=== PATIENT | male | born 1970 | race Caucasian/White ===

== ENCOUNTER 2016-09-04 10:00 | Emergency (ER) | payer MEDICARE, OTHER ==
[~2016-09-04] VITALS: Ht 190.5 cm; Wt 94.5 kg
[~2016-09-04 10:00] MED LIST: BACTRIM DS1 TAB PO; CEPHALEXIN500 MG PO; CIPROFLOXACN500 MG PO; CLINDAMYCIN150 MG PO; COZAAR25 MG PO; DILAUDID2 MG PO; GABAPENTIN800 MG PO; HYDROCHLOROT25 MG PO; LEVEMIR FL100 UNIT/M SC; LIPITOR40 MG PO; LISINOPRIL20 MG PO; LOPID600 MG PO; LORTAB 10-325 M1 TAB PO; LORTAB 7.57.5 MG OR; METFORMIN1000 MG PO; METFORMIN500 MG PO; METOPROL TAR25 MG PO; MICRONASE5 MG PO; NEXIUM40 MG PO; NOVOLOG FLEXPEN SC; PEGASYS180 MCG/M SC; PREVPAC OR; PRILOSEC20 MG/CAP PO; RIBAVIRIN200 M1 PO; TOPAMAX25 MG PO; TRAMADOL HCL50 MG PO; ULTRAM50 M1 PO
[2016-09-04] MEDS ORDERED: EC-NAPROSYN500 MG PO (13:31)
[2016-09-04] MEDS ORDERED: LORTAB 5/3255 MG PO (13:31)
[2016-09-04 13:42] VITALS: BP 128/78
== END 2016-09-04 13:49 | disposition home or self-care (01) ==
LOC: ED 10:00
DX: S00.93XA Contusion of unspecified part of head, initial encounter (principal); S40.011A Contusion of right shoulder, initial encounter; V13.4XXA Pedal cycle driver injured in collision with car, pick-up truck or van in traffic accident, initial encounter; Y92.414 Local residential or business street as the place of occurrence of the external cause

== ENCOUNTER 2017-08-28 10:32 | Emergency (ER) | payer MEDICARE, MEDICAID ==
[~2017-08-28] VITALS: Ht 190.5 cm; Wt 86.8 kg
[~2017-08-28 10:32] MED LIST changes: +EC-NAPROSYN500 MG PO; +LORTAB 5/3255 MG PO
[2017-08-28] MEDS ORDERED: CEPHALEXIN500 M1 PO (10:58)
[2017-08-28] MEDS ORDERED: BACTRIM DS1 TAB PO (10:58)
[2017-08-28 11:09] VITALS: BP 147/87
[2017-08-28] MEDS ORDERED: VITAMIN D PO (11:14)
[2017-08-28] MEDS ORDERED: MOTRIN400 MG PO (11:22)
== END 2017-08-28 11:22 | disposition home or self-care (01) ==
LOC: ED 10:32
PROC: 0H94XZZ Drainage of Neck Skin, External Approach (ICD-10-PCS; principal; 2017-08-28)
DX: L02.11 Cutaneous abscess of neck (principal); L03.221 Cellulitis of neck; E11.9 Type 2 diabetes mellitus without complications; B19.20 Unspecified viral hepatitis C without hepatic coma; F17.210 Nicotine dependence, cigarettes, uncomplicated

== ENCOUNTER 2019-12-02 09:36 | Inpatient (IN) | payer MEDICARE, MEDICAID ==
[2019-12-02] VITALS (9 sets, daily range): BP systolic 137–150; BP diastolic 67–80
[~2019-12-02] VITALS: Ht 190.5 cm; Wt 84.4 kg
[~2019-12-02 09:36] MED LIST changes: +CEPHALEXIN500 M1 PO; +MOTRIN400 MG PO; +VITAMIN D PO
--- NOTE | 2019-12-02 10:00 | NUR ---
PT TO ROOM VIA WC IN NO ACUTE DISTRESS.
[2019-12-02 10:45] LABS: HEMATOCRIT 45.3 % (39.0-50.0); HEMOGLOBIN 14.9 g/dl (14.0-18.0); IMMATURE GRANULOCYTES 0.6 % (0.0-5.0); MEAN CORPUSCULAR HGB 27.7 pG CALC (26.0-32.0); MEAN CORPUSCULAR HGB CONC 32.9 g/dL CAL (32.0-36.0); NEUT# 14.8 thou/uL (1.82-7.42); RED BLOOD COUNT 5.37 mill/uL (4.70-6.10); RED CELL DISTRI WIDTH 14.4 % (11.5-15.5)
[2019-12-02 10:46] LABS: URINE BILIRUBIN - DIPSTICK NEGATIVE (NEGATIVE); URINE BLOOD DIPSTICK SMALL (NEGATIVE); URINE COLOR YELLOW; URINE GLUCOSE - DIPSTICK >=1000 mg/dL (NEGATIVE); URINE KETONE NEGATIVE (NEGATIVE); URINE LEUK ESTERASE NEGATIVE (NEGATIVE); URINE NITRITE - DIPSTICK NEGATIVE (Negative); URINE PROTEIN - DIPSTICK 100 mg/dL (NEG-TRACE); URINE SPECIFIC GRAVITY 1.015; URINE UROBILINOGEN - DIPSTICK 0.2 E.U./dL (0.2)
[2019-12-02 10:48] LABS: MEAN CELL VOLUME 84.4 fL CALC (80.0-100.0)
[2019-12-02 10:59] LABS: ALBUMIN 4.3 g/dL (3.2-5.0); BUN 10 mg/dL (9-20); BUN/CREATININE RATIO 15 (12-20 (CALC)); CARBON DIOXIDE 27 mmol/l (22-30); CREATININE 0.7 mg/dL (0.7-1.3); GFR > 60 ML/MIN (>=60 (CALC)); GFR FOR AFR.AMER. > 60 ML/MIN (>=60 (CALC)); POTASSIUM 4.3 mmol/l (3.5-5.1); SGOT/AST 23 u/l (17-59); TOTAL PROTEIN 8.5 g/dL (6.3-8.2)
[2019-12-02 11:00] LABS: ALKALINE PHOSPHATASE 164 u/l (38-126); ANION GAP 16 (6-22 (CALC)); BILIRUBIN, TOTAL 0.9 mg/dL (0.0-1.4); CHLORIDE 88 mmol/l (95-108); SODIUM 127 mmol/l (137-146)
[2019-12-02 11:00] LABS: URINE BACTERIA MANY hpf; URINE SQUAMOUS EPITHELIAL CELL FEW EPI/hpf (0-FEW)
--- NOTE | 2019-12-02 11:00 | NUR ---
PT PRESENTS WITH NO PAIN AT THIS TIME AND IS NOT IN DISTRESS. PT ADVISED OF WAIT AND CALL LIGHT WITHIN REACH
--- NOTE | 2019-12-02 12:18 | NUR ---
RECHECKED GLUCOSE AFTER AN HOUR OF INSULIN ADMIN, RESULT: [id number]
--- NOTE | 2019-12-02 14:30 | NUR ---
ASSISTED PT TO BR, CHRISTA DAVIS
--- NOTE | 2019-12-02 15:40 | NUR ---
CALLED DR. ZHONG FOR ORDERS AND UPDATE ON PT, NEW ORDERS [id number] WHERE PT IS GOING TO CHANGE FROM MED SURG TO ICU. TREATMENTS IN PROCESS.
--- NOTE | 2019-12-02 16:00 | NUR ---
PT STATES HAVING TESTICULAR PAIN, MD ASSESSED AND AN ABCESS WAS DISCOVERED. TREATMENTS IN PROCESS AND PAIN MED GIVIN
--- NOTE | 2019-12-02 16:20 | NUR ---
PT MEDICATED FOR RT GROIN/TESTICULAR PAIN. PT WITH CONTINUOUS IVF BOLUS
--- NOTE | 2019-12-02 17:01 | NUR ---
PT UPDATED ON WAIT AND CHANGE OF EVENTS, HE VERBALIZED UNDERSTANDING. FLUIDS CONTINUE TO BE ADMIN
--- NOTE | 2019-12-02 18:00 | NUR ---
MD NOTIFIED OF PT VOMITING, ZOSYN WAS STOP FOR PRECAUSIONS, ORDERS FOR ZOFRAN RECIEVED.
--- NOTE | 2019-12-02 18:19 | NUR ---
400 CC COLLECTED OF URINE FROM STRAIGHT CATH, PT TOLERATED WELL. ZOSYN RESUMED PER MD ORDER
--- NOTE | 2019-12-02 18:57 | NUR ---
RECEIVED HAND OFF REPORT FROM JEWELS DALY, PATIENT TO ULTRASOUND AT THIS TIME.
--- NOTE | 2019-12-02 19:00 | NUR ---
GAVE REPORT TO SHANNEN
--- NOTE | 2019-12-02 19:25 | NUR ---
GAVE REPORT TO NARAYAN
--- NOTE | 2019-12-02 19:35 | NUR ---
49 yr old VERY old appearing male admitted to icu7 per stretcher from er. transferred self with 1 assist to bed. requested "pain medicine." admits "dilaudid will help." told this flex o writer operator he sees a "pain management dr in [place]" but doesn't know his name. monitoring engineer shows sinus tach hr 133. #20 rac saline lock. vancomycin given as ordered. history obtained per pt # er record. oriented to room. fall precautions initiated.
--- NOTE | 2019-12-02 20:05 | NUR ---
medicated for pain as requested.
[2019-12-03] VITALS (11 sets, daily range): BP systolic 99–144; BP diastolic 61–76
--- NOTE | 2019-12-03 00:01 | NUR ---
awake. medicated for pain as requested. crdiac monitor showssinus tach hr 130
--- NOTE | 2019-12-03 02:00 | NUR ---
watching tv. no distress. ivf infusing well.
--- NOTE | 2019-12-03 05:00 | NUR ---
lab hre. blood drawn.
[2019-12-03 05:26] LABS: HEMATOCRIT 39.5 % (39.0-50.0); IMMATURE GRANULOCYTES 1.3 % (0.0-5.0); MEAN CELL VOLUME 85.7 fL CALC (80.0-100.0); MEAN CORPUSCULAR HGB 27.1 pG CALC (26.0-32.0); MEAN CORPUSCULAR HGB CONC 31.6 g/dL CAL (32.0-36.0); NEUT# 15.57 thou/uL (1.82-7.42); RED BLOOD COUNT 4.61 mill/uL (4.70-6.10); RED CELL DISTRI WIDTH 14.7 % (11.5-15.5)
--- NOTE | 2019-12-03 05:40 | NUR ---
awake. medicated for pain as requested.
[2019-12-03 05:43] LABS: HEMOGLOBIN 12.5 g/dl (14.0-18.0)
[2019-12-03 06:56] LABS: ALKALINE PHOSPHATASE 118 u/l (38-126); ANION GAP 12 (6-22 (CALC)); BILIRUBIN, TOTAL 0.7 mg/dL (0.0-1.4); BUN 12 mg/dL (9-20); BUN/CREATININE RATIO 19 (12-20 (CALC)); CARBON DIOXIDE 22 mmol/l (22-30); CHLORIDE 98 mmol/l (95-108); CREATININE 0.6 mg/dL (0.7-1.3); GFR > 60 ML/MIN (>=60 (CALC)); GFR FOR AFR.AMER. > 60 ML/MIN (>=60 (CALC)); POTASSIUM 3.6 mmol/l (3.5-5.1); SGOT/AST 21 u/l (17-59); SODIUM 128 mmol/l (137-146); TOTAL PROTEIN 6.9 g/dL (6.3-8.2)
[2019-12-03 06:59] LABS: ALBUMIN 3.4 g/dL (3.2-5.0)
--- NOTE | 2019-12-03 07:30 | NUR ---
pt awake in bed; no apparent distress noted; assessment completed at this time; pt alert and oriented; admits to pain to scrotum area rating 9/10; no n/v noted; morphine order explained; typewriter assembler will medicate when due; resp even and unlabored; lungs clear; skin color wnl; ra; hr reg; strong pulses; no edema noted; st on monitor; abd soft with bs present; no bm noted per typewriter assembler; pt admits to voiding without pain or burning; urinal at bedside; #20 patent to rac with ivf infusing without complication; no redness or edema noted at site; redness and edema noted to scrotum; plan of care/ meds explained; call light within reach; will continue to monitor
--- NOTE | 2019-12-03 08:04 | NUR ---
awake in bed; no apparent distress noted; iv intact and patent; st on monitor; call light within reach; will continue to monitor
--- NOTE | 2019-12-03 08:34 | NUR ---
S: ANN SOLIS is a 49 M who presents with UTI, sepsis, and uncontrolled diabetes mellitus. He has a history of diabetes mellitus and Hep C. All medications in patient's chart were reviewed. O: VS: BP 144/64 mmHg, P 123 bpm, RR 29 breaths/min, T 98.6 F W 86 kg, HT 190.5 cm, Scr= 0.6, CrCl= 177.2 ml/min A: Blood culture is pending. Urine culture preliminary shows gram negative darryl >100,000 CFU/ML . P: Patient is on piperacillin sod/tazobactam 3.375gm IV Q6H. Vancomycin ordered for pharmacy to dose. Start Vancomycin 1g IV Q8H. Vancomycin trough is drawn before the 4th dose on 12/03/2019 1800. Vancomycin goal trough is between 15-20 mcg/ml. Pharmacy will follow and or advise on antibiotics use as needed.
--- NOTE | 2019-12-03 09:30 | NUR ---
awake in bed; medicated as per request for pain; iv intact and patent; will continue to monitor
--- NOTE | 2019-12-03 10:00 | NUR ---
Dr Renteria present at bedside to assess pt and discuss plan of care; scrotum elevated as per MD request; will continue to monitor
--- NOTE | 2019-12-03 12:02 | NUR ---
awake in bed; no apparent distress noted; scrotum elevated; st on monitor; iv intact and patent; call light within reach; will continue to monitor
--- NOTE | 2019-12-03 13:54 | NUR ---
pt awake in bed; noted to have vomited all over self; st on monitor; iv intact and patent; no redness or edma noted at site; call light within reach; will continue to monitor
--- NOTE | 2019-12-03 14:30 | NUR ---
up to chair; very weak/ unsteady gait; pt admits to ambulating with cane; assisted bath with complete linen change; pt wishes to return to bed; scrotum elevated; offers no complaints of pain; will continue to monitor
--- NOTE | 2019-12-03 16:05 | NUR ---
resting in bed with eyes closed; no apparent distress noted; st on monitor; iv intact and patent; scrotum remains elevated with towel; call light within reach; will continue to monitor
[2019-12-03] MEDS ORDERED: METFORMIN HYD1000 MG PO (16:49)
[2019-12-03] MEDS ORDERED: HUMALOG100 UNIT/M SC (16:50)
--- NOTE | 2019-12-03 16:50 | NUR ---
PER CRISTIANE, PT REPORTS HE MANAGES HIS OWN MEDS. REPORTS TAKING METFORMIN 1000MG PO BID AND HUMALOG 20 UNITS SC BID. CLAIMS [facility] IS WHERE HE FILLS MEDS. CALLED [facility], PT HAS NOT FILLED ANY MEDS SINCE 04/2019. MED REC UPDATED WITH THIS INFORMATION.
--- NOTE | 2019-12-03 18:03 | NUR ---
awake in bed eating dinner; no apparent distress noted; pt offers no complaints; iv intact and patent; st on monitor; call light within reach
--- NOTE | 2019-12-03 19:10 | NUR ---
awake. nad. hall monitor shows sinus tach hr 113. #20 rac ns infusing @ 125cchr. po fluids taken well. voids per urinal. fall precautions cont.
--- NOTE | 2019-12-03 22:00 | NUR ---
watching tv. no distress. ivf infusing well.
[2019-12-04] VITALS (13 sets, daily range): BP systolic 96–160; BP diastolic 60–85
--- NOTE | 2019-12-04 00:01 | NUR ---
c/o pain of "10". does not appear in that much pain. medicated as ordered.
--- NOTE | 2019-12-04 02:00 | NUR ---
watching tv. no c/o voiced. cardiac nurse practitioner shows sinus rhythm hr 98.
--- NOTE | 2019-12-04 04:00 | NUR ---
c/o pain "8-9." does not appear in that much pain. medicated as ordered.
[2019-12-04 06:09] LABS: MEAN CELL VOLUME 86.1 fL CALC (80.0-100.0); MEAN CORPUSCULAR HGB 27.2 pG CALC (26.0-32.0); MEAN CORPUSCULAR HGB CONC 31.6 g/dL CAL (32.0-36.0); RED BLOOD COUNT 3.75 mill/uL (4.70-6.10); RED CELL DISTRI WIDTH 14.6 % (11.5-15.5)
[2019-12-04 06:11] LABS: HEMATOCRIT 32.3 % (39.0-50.0); HEMOGLOBIN 10.2 g/dl (14.0-18.0)
[2019-12-04 06:18] LABS: ALKALINE PHOSPHATASE 91 u/l (38-126); ANION GAP 9 (6-22 (CALC)); BUN 15 mg/dL (9-20); BUN/CREATININE RATIO 26 (12-20 (CALC)); CARBON DIOXIDE 24 mmol/l (22-30); CHLORIDE 100 mmol/l (95-108); CREATININE 0.6 mg/dL (0.7-1.3); GFR > 60 ML/MIN (>=60 (CALC)); GFR FOR AFR.AMER. > 60 ML/MIN (>=60 (CALC)); SGOT/AST 18 u/l (17-59); SODIUM 130 mmol/l (137-146)
[2019-12-04 06:20] LABS: ALBUMIN 2.7 g/dL (3.2-5.0); BILIRUBIN, TOTAL 0.4 mg/dL (0.0-1.4); TOTAL PROTEIN 5.4 g/dL (6.3-8.2)
--- NOTE | 2019-12-04 06:45 | NUR ---
RECVD REPORT FROM CHANTELLE BUSCH AT START OF SHIFT
--- NOTE | 2019-12-04 07:24 | NUR ---
PT SLEEPING IN BED. NO S/S OF DISTRESS AT THIS TIME.
--- NOTE | 2019-12-04 08:07 | NUR ---
PT C/O PAIN TO TESTICLES OF 9/10 THROBBING & GENERALIZED BACK PAIN AND NEUROPATHY THAT HE SEES PAIN MANAGEMTN FOR. PT UNABLE TO REMEMBER PAIN MGMT MD OR RX. PT MEDICATED.
--- NOTE | 2019-12-04 08:57 | NUR ---
RBVO FOR CONSULT WITH JORGE LUIS TATE, TRANSFER TO [facility], KVO IVF. OR NOTIFIED OF CONSULT.
--- NOTE | 2019-12-04 10:15 | NUR ---
#16 CATH SWANSON INSERTED USING STERILE PROCEDURE W/OUT RESISTANCE. 800 CLOUDY YELLOW URINE OUT IMMEDIATELY. LARGE AMOUNT OF CRUSTY WHITE YEAST-LIKE SUBSTANCE WHEN FORESKIN PULLED BACK.
--- NOTE | 2019-12-04 11:42 | NUR ---
PT SITTING UP IN BED, EATING LUNCH. ASSISTED PT IN PERSONAL CELL PHONE TILE GRADER RETREIVAL FROM PERSONAL BAG AND PLUGGED IN PTS PERSONAL PHONE.
--- NOTE | 2019-12-04 12:10 | NUR ---
PT REQUEST PAIN MEDS FOR 9/10 CHRONIC PAIN & GROIN PAIN. PT LAUGHING IN ROOM, PLAYFUL WITH STAFF, SHOWING THIS RN PICTURES OF HIS DOG.
--- NOTE | 2019-12-04 12:26 | NUR ---
DR ESPAÑA @BEDSIDE FOR CONSULT. LEAVE IN CATH SWANSON. NO NEW ORDERS.
--- NOTE | 2019-12-04 13:31 | NUR ---
PT ON CALLBELL FOR DIET SODA.
--- NOTE | 2019-12-04 13:34 | NUR ---
S: ANN SOLIS is a 49 M who presents with UTI and sepsis. He has a history of diabetes mellitus and Hep C. All medications in patient's chart were reviewed. O: VS: BP 105/67 mmHg, P 92 bpm, RR 17 breaths/min, T 97.6 F W 86.012 kg, HT 190.5 cm, Scr= 0.6, CrCl= 177 ml/min A: Blood culture is pending. Urine culture shows E. Coli >100,000 CFU/ML which is sensitive to zosyn. P: Patient is on zosyn 3.375gm IV Q6H. Vancomycin ordered for pharmacy to dose. Patient was on vancomycin 1000mg IV Q8H. Trough levels was 8 on 12/03/2019. Change Vancomycin to 1250mg IV Q8H. Vancomycin trough is drawn before the 4th dose on 12/04/2019 1800. Vancomycin goal trough is between 15-20 mcg/ml. Pharmacy will follow and or advise on antibiotics use as needed.
--- NOTE | 2019-12-04 16:24 | NUR ---
UNABLE TO TAKE PICTURE OF SWOLLEN SCROTUM D/T CAMERA NOT CHARGING. PT REFUSING TO ELEVATE HIS SCROTUM. PT C/O 02/03 PAIN BUT PT IS JOKING & PLAYFUL WITH STAFF, SMILING.
--- NOTE | 2019-12-04 18:30 | NUR ---
CALLED [facility] FOR ROOM ASSIGNMENT
--- NOTE | 2019-12-04 20:30 | NUR ---
to [facility] room 272 per w/c.
--- NOTE | 2019-12-04 20:39 | NUR ---
PT ARRIVED TO ROOM @ 2006 VIA WHEELCHAIR. PT ALERT AND ORIENTED. NO APPARENT DISTRESS NOTED. PT C/O GROIN/TESTICLE PAIN 03/05. PT MEDICATED AT THIS TIME WITH IV MORPHINE. ASSESSMENT COMPLETE. FRESH ICE WATER PROVIDED. DISCUSSED POC. PT VERBALIZED UNDERSTANDING. CALL LIGHT WITHIN REACH. WILL CONTINUE TO MONITOR.
[2019-12-05 00:33] VITALS: BP 113/67
--- NOTE | 2019-12-05 00:35 | NUR ---
PT MEDICATED FOR SCROTUM PAIN 02/03 WITH IV MORPHINE. SCROTUM ELEVATED AT THIS TIME. PT DENIES ANY OTHER WANTS OR NEEDS. CALL LIGHT WITHIN REACH. WILL CONTINUE TO MONITOR.
[2019-12-05 04:30] VITALS: BP 130/67
--- NOTE | 2019-12-05 04:33 | NUR ---
PT MEDICATED FOR SCROTUM PAIN 9-10. SCROTOM ELEVATED WITH TOWEL AT THIS TIME. PT DENIES ANY OTHER WANTS OR NEEDS. CALL LIGHT WITHIN REACH. WILL CONTINUE TO MONITOR.
--- NOTE | 2019-12-05 07:40 | NUR ---
REPORT RECEIVED FROM CHANTELLE ARELLANO. PT RESTING IN BED SEMI FOWLERS WITH EYES CLOSED AND NO SIGNS OF DISTRESS. RESPIRATIONS EVEN AND UNLABORED ON ROOM AIR. AWAKENED TO VERBAL STIMULI. UPON AWAKENING PT C/O 10/10 SCROTAL PAIN; SCROTUM IS RED, WARM, AND SWOLLEN; ELEVATED ON WASH CLOTHS; ICE OFFERED. LUNGS ARE CLEAR, ABDOMEN DISTENDED AND FIRM WITH HYPERACTIVE BS. SWANSON DRAINING CLEAR YELLOW URINE IN ADEQUATE AMOUNTS; LEG STRAP SECURE TO RIGHT THIGH. IV FLUIDS INFUSING; IV SITE APPEARS HEALTHY. PLAN OF CARE REVIEWED. PT ENCOURAGED TO VERBALIZE CONCERNS. STATES UNDERSTANDING. SAFETY MEASURES IN PLACE. CALL LIGHT WITHIN REACH.
[2019-12-05 07:56] VITALS: BP 96/57
[2019-12-05 10:02] LABS: HEMATOCRIT 30.2 % (39.0-50.0); HEMOGLOBIN 9.8 g/dl (14.0-18.0); MEAN CELL VOLUME 84.6 fL CALC (80.0-100.0); MEAN CORPUSCULAR HGB 27.5 pG CALC (26.0-32.0); MEAN CORPUSCULAR HGB CONC 32.5 g/dL CAL (32.0-36.0); RED BLOOD COUNT 3.57 mill/uL (4.70-6.10); RED CELL DISTRI WIDTH 14.3 % (11.5-15.5)
[2019-12-05 10:18] LABS: ANION GAP 9 (6-22 (CALC)); BUN 10 mg/dL (9-20); BUN/CREATININE RATIO 17 (12-20 (CALC)); CARBON DIOXIDE 26 mmol/l (22-30); CHLORIDE 98 mmol/l (95-108); CREATININE 0.6 mg/dL (0.7-1.3); GFR > 60 ML/MIN (>=60 (CALC)); GFR FOR AFR.AMER. > 60 ML/MIN (>=60 (CALC)); SODIUM 130 mmol/l (137-146)
--- NOTE | 2019-12-05 10:45 | NUR ---
MORPHINE GIVEN FOR 10/10 SCROTAL PAIN.
--- NOTE | 2019-12-05 12:30 | NUR ---
PO POTASSIUM GIVEN ALONG WITH FIRST DOSE OF ROCEPHIN; PT EDUCATED ON NEW MED.
--- NOTE | 2019-12-05 15:00 | NUR ---
MORPHINE GIVEN FOR 10/10 SCROTAL PAIN. WALKER PROVIDED AND PT AMBUALTED INTO BATHROOM TO GIVEN HIMSELF A PARITAL BATH; DECLINED FULL SHOWER AT THIS TIME; LINENS CHANGED. 825 ML OF CLEAR DARRELL URINE EMPTIED FROM SWANSON.
[2019-12-05 15:41] VITALS: BP 118/68
[2019-12-05 18:58] VITALS: BP 101/57
--- NOTE | 2019-12-05 19:30 | NUR ---
REPORT FROM AGUSTIN DONIS. PT ALERT AND ORIENTED. NO APPARENT DISTRESS NOTED. PT C/O GROIN/TESTICLE PAIN 02/03. PT MEDICATED AT THIS TIME WITH IV MORPHINE. SCROTUM RED AND SWOLLEN, ELEVATED WITH ROLLED UP TOWEL. ASSESSMENT COMPLETE. FRESH ICE WATER PROVIDED. DISCUSSED POC. PT VERBALIZED UNDERSTANDING. CALL LIGHT WITHIN REACH. WILL CONTINUE TO MONITOR.
--- NOTE | 2019-12-05 23:32 | NUR ---
PT RESTING IN BED. NO APPARENT DISTRESS NOTED. KIKI REMAINS PATENT. SCROTUM ELEVATED ON TOWEL. SNACK PROVIDED UPON REQUEST. PT DENIES ANY OTHER WANTS OR NEEDS. CALL LIGHT WITHIN REACH. WILL CONTINUE TO MONITOR.
[2019-12-05 23:50] VITALS: BP 109/59
[2019-12-06 04:21] VITALS: BP 112/62
--- NOTE | 2019-12-06 04:46 | NUR ---
PT MEDICATED FOR PAIN IN SCROTUM 03/05. NO APPARENT DISTRESS NOTED. ENCOURAGED REPOSITIONING AND ELEVATION OF SCROTUM WITH TOWEL. NO OTHER WANTS OR NEEDS. CALL LIGHT WITHIN REACH. WILL CONTINUE TO MONITOR.
--- NOTE | 2019-12-06 07:00 | NUR ---
SHIFT CHANGE REPORT, PT AWAKE ALERT AND ORIENTED RESTING IN BED, NO C/O DISCOMFORT AT THIS TIME, IVF INFUSING, TELE MONITOR IN PLACE, CALL OSMAN IN REACH.
[2019-12-06 07:52] VITALS: BP 108/57
[2019-12-06 11:26] VITALS: BP 116/63
--- NOTE | 2019-12-06 14:35 | NUR ---
S: ANN SOLIS is a 49 M who presents with CELLULITIS . He has a history of epifofymitis. All medications in patient's chart were reviewed. O: VS: BP 116/63 , P 88, RR 18,T 97.7 W 84kg, HT 75in, Scr=0.6 A: Blood culture shows no growth after 2 days Urine culture shows ecoli P: Patient is on rocephin 1 gram Vancomycin ordered for pharmacy to dose. continue Vancomycin 1250mg q8h IV Q12H. Vancomycin trough is drawn before the dose on 12/07/19 @0930. Vancomycin goal trough is between <10-15 mcg/ml>. Pharmacy will follow and or advise on antibiotics use as needed LANA STALLINGSD
[2019-12-06 15:50] VITALS: BP 122/67
--- NOTE | 2019-12-06 16:00 | NUR ---
PT DEMOTIVATED AND WANTS TO LAY IN BED ALL DAY, EDUCATED ON BENEFITS OF AMBULATING AND ENCOURAGED TO GET OOB TO AMBULATE, TOOK FEW STEPS IN ROOM THEN DECIDED HE COULDNT TOLERATE AMBULATING, ASSISTED BACK TO BED.
--- NOTE | 2019-12-06 19:30 | NUR ---
TO ICU 5 VIA BED DUE TO STAFFING ISSUES. PT ALERT. COOPERATIVE. VANCOMUCIN IN NS INFUSING RX THROUGH #22 IV IN LEFT FOREARM. SITE APPEARS WELL. PT REPORTS HE IS FEELING MUCH BETTER AND SCROTUM IS MUCH LESS EDEMATOUS THAT ON ADMISSION. SWANSON TO BSD WITH STRAW COLORED URINE
--- NOTE | 2019-12-06 19:30 | NUR ---
REPORT GIVEN TO MARYANN IN ICU, PT INFORMED OF PLAN TO TRANSFER AND STATED UNDERSTANDING. PT TRANSFERRED VIA BED TO ICU AND RECEIVED BY MARYANN.
[2019-12-06 20:00] VITALS: BP 140/66
--- NOTE | 2019-12-06 20:30 | NUR ---
REQUESTED PAIN MEDICATION FOR SCROTAL PAIN WHICH SINDS PAIN UP BACK. REPORTS HAS CHRONIC BACK PAIN SINCE ROLLING AUTOMOBILE 27 TIMES ON FLAT SURFACE. ALSO, REQUESTING CRACKERS, SANDWICH, SALAD AND GINGERALE. HALF OF A TURKEY SANDWICH, DIET GINGERALE AND DIET PUDDING GIVEN AFTER HS ACCUCHECK WHICH WAS 208.
--- NOTE | 2019-12-06 21:30 | NUR ---
MORPHINE GIVEN PER REQUEST. STATES BACK IS HURTING SCROTAL PAIN SHOOTS PAIN UP BACK
--- NOTE | 2019-12-06 22:15 | NUR ---
STATES SCROTAL PAIN ABOUT GONE BUT BACK CONTINUES TO ACHE. SAID HE NEEDS DTRONGER PAIN MEDICATION THAN MORPHINE. EXPLAINED THAT IS A NARCOTIC AND ONE OF THE STRONGEST THAT WE HAVE. REPORTS HE WILL ASK THE DOCTOR FOR A LARGER DOSE OR SOMETHING DIFFERENT IN THE MORNING.
--- NOTE | 2019-12-06 23:03 | NUR ---
AT SNACKS-TOLERATED WELL. BEDRESTING WITH LIGHTS OUT AT THIS TIME
[2019-12-07] VITALS (7 sets, daily range): BP systolic 119–140; BP diastolic 64–77
--- NOTE | 2019-12-07 01:00 | NUR ---
WATCHING TV. STATES NAPPING AT TIMES. DENIES SCROTAL PAIN AND STATES HE ALWAYS HAS BACK PAIN. LIGHT YELLOW URINE TO BSD BAG
--- NOTE | 2019-12-07 02:35 | NUR ---
PLAYING VIDEO GAMES. NO DISTRESS NOTED. VANCOMYCIN INFUSING FREE OF ISSUES
--- NOTE | 2019-12-07 04:00 | NUR ---
BEDRESTING. NAPPING AT INTERVALS.N/C GIVEN PAIN MEDICATION EVERY 4 HOURS
--- NOTE | 2019-12-07 06:00 | NUR ---
WATCHING TV. REQUESTING PAIN MEDICATION AND SODA. HAD LARGE URINATY OUTPUT VIA SWANSON. PT REPORTS SWANSON WAS PLACE HE WAS TOO SWOLLEN TO VOID BUT IS DOING MUCH BETTER NOW. HAS HAD SCROTUM ON TOWEL TO ELEVATE BUT PT HAS REMOVED TOWELS AND REPOSITIONED SCROTUM AD KAMAR. HE REPORTS FEELING MUCH BETTER
--- NOTE | 2019-12-07 07:14 | NUR ---
REPORT GIVEN TO S.ROSE
--- NOTE | 2019-12-07 07:20 | NUR ---
pt awake in bed; no apparent distress noted; assessment completed at this time; pt alert and oriented; admits to pain rating 9.5/10; no n/v noted; morphine prn explained; resp even and unlabored; lungs clear; skin color wnl; ra; hr reg; strong pulses; no edema noted; sr on monitor; abd distended with bs present; no bm noted per technical document writer; sylvester to gravity draining clear yellow urinel #22 flushed and patent to lfa; no redness or edema noted at site; scrotum noted with swelling and redness; plan of care/am meds explained; call light within reach; will continue to monitor
--- NOTE | 2019-12-07 07:48 | NUR ---
Dr Renteria present at bedside to assess pt and discuss plan of care
--- NOTE | 2019-12-07 08:20 | NUR ---
awake in bed; no apparent distress noted; iv intact; sr on monitor; sylvester to gravity; call light within reach; will continue to monitor
--- NOTE | 2019-12-07 09:45 | NUR ---
filling station laborer at bedside; plan of care/transfer explained; will continue to monitor
--- NOTE | 2019-12-07 10:00 | NUR ---
report called to Anat Singh RN; pt to transfer to med surg tele [phone]; receiving nurse informed of Dr Renteria request for sylvester to be removed after transfer and for pt to be up and ambulating;
[2019-12-07 10:07] LABS: ANION GAP 7 (6-22 (CALC)); BUN 7 mg/dL (9-20); BUN/CREATININE RATIO 15 (12-20 (CALC)); CARBON DIOXIDE 28 mmol/l (22-30); CHLORIDE 102 mmol/l (95-108); CREATININE 0.5 mg/dL (0.7-1.3); GFR > 60 ML/MIN (>=60 (CALC)); GFR FOR AFR.AMER. > 60 ML/MIN (>=60 (CALC)); MAGNESIUM 1.9 mg/dL (1.6-2.3); POTASSIUM 3.3 mmol/l (3.5-5.1); SODIUM 133 mmol/l (137-146)
--- NOTE | 2019-12-07 10:12 | NUR ---
Dr Renteria informed of K+ of 3.3; orders received and on chart
--- NOTE | 2019-12-07 10:14 | NUR ---
pt transferred to med surg via wc in stable condition; pt belongings sent with pt; update provided to Anat Singh RN;
--- NOTE | 2019-12-07 10:15 | NUR ---
PT ARRIVED TO ROOM VIA WHEELCHAIR WITH ICU STAFF IN STABLE CONDITION; PT TOOK A FEW UNSTEADY STEPS TO BED AND NOW RESTING IN BED SEMI FOWLERS. C/O 9/10 SCROTAL PAIN AND REQUESTING PAIN MEDICATION. ORIENTED TO NEW ROOM AND CALL LIGHT SYSTEM. VSS. SAFETY MEASURES IN PLACE. CALL LIGHT WITHIN REACH.
--- NOTE | 2019-12-07 11:25 | NUR ---
SWANSON REMOVED; PT TOLERATED WELL. VANCO TROUGH 12; VANCO INFUSING AT THIS TIME. WALKER PROVIDED FOR AMBULATION. MEDICATED WITH MORPHINE PRIOR TO SWANSON REMOVAL.
--- NOTE | 2019-12-07 12:04 | NUR ---
S: ANN SOLIS is a 49 M who presents with acute epididymitis and sepsis. He has a history of diabetes and hepatitis C. All medications in patient's chart were reviewed. O: VS: BP 140/70 mmHg, P 85 bpm, RR 18 breaths/min, T 97.2 F W 847.37 kg, HT 190.5 cm, Scr= 0.5 mg/dL, CrCl= 170.6 ml/min A: Blood culture on 12/02/19 shows no growth. Urine culture on 12/02/19 shows E. coli > 100,000 cfu/ml which is sensitive to ceftriaxone. P: Patient is on ceftriaxone 1g IV Q24H. Vancomycin ordered for pharmacy to dose. Vancomycin trough level is 12 on 12/07/19. Continue Vancomycin 1250 mg IV Q8H. Vancomycin trough is drawn before the 4th dose on 12/08/19 at 0930. Vancomycin goal trough is between 10-15 mcg/ml. Pharmacy will follow and or advise on antibiotics use as needed.
--- NOTE | 2019-12-07 16:18 | NUR ---
AMBULATING DOWN HALLWAY WITH WALKER AND STAND BY ASSIST. HAVING SEVERE SCROTAL PAIN DURING AMBULATION; MORPHINE ADMINISTERED AT THIS TIME.
--- NOTE | 2019-12-07 18:44 | NUR ---
VANCO INFUSING; IV SITE APPEARS HEALTHY. PT REQUESTING PAIN MEDICATION. REMINDED OF MED FREQUENCY; WILL ADMINISTER WHEN DUE.
--- NOTE | 2019-12-07 20:00 | NUR ---
PATIENT RESTING IN BED. SHIFT ASSESSMENT COMPLETE. ADMINISTERED SCHEDULED MEDICATIONS PER MAR. NO DISTRESS NOTED. VSS. PATIENT VOIDING IN URINAL. RESPIRATIONS EVEN AND UNLABORED. CALL LIGHT IN REACH. WILL CONTINUE TO MONITOR.
--- NOTE | 2019-12-08 00:52 | NUR ---
PATIENT SLEEPING IN BED. NO DISTRESS NOTED. RESPIRATIONS EVEN AND UNLABORED. CONTINUE TO MONITOR.
[2019-12-08 03:48] VITALS: BP 125/67
--- NOTE | 2019-12-08 04:00 | NUR ---
PATIENT SLEEPING IN BED. RESP EVEN AND UNLABORED. NO DISTRESS NOTED.
[2019-12-08 05:00] LABS: MEAN CELL VOLUME 86.4 fL CALC (80.0-100.0); MEAN CORPUSCULAR HGB 27.2 pG CALC (26.0-32.0); MEAN CORPUSCULAR HGB CONC 31.5 g/dL CAL (32.0-36.0); NEUT# 4.04 thou/uL (1.82-7.42); RED BLOOD COUNT 4.34 mill/uL (4.70-6.10); RED CELL DISTRI WIDTH 15.1 % (11.5-15.5)
[2019-12-08 05:05] LABS: HEMATOCRIT 37.5 % (39.0-50.0); HEMOGLOBIN 11.8 g/dl (14.0-18.0)
[2019-12-08 05:31] LABS: ANION GAP 9 (6-22 (CALC)); BUN 8 mg/dL (9-20); BUN/CREATININE RATIO 13 (12-20 (CALC)); CARBON DIOXIDE 28 mmol/l (22-30); CHLORIDE 102 mmol/l (95-108); CREATININE 0.6 mg/dL (0.7-1.3); GFR > 60 ML/MIN (>=60 (CALC)); GFR FOR AFR.AMER. > 60 ML/MIN (>=60 (CALC)); POTASSIUM 3.7 mmol/l (3.5-5.1); SODIUM 134 mmol/l (137-146)
[2019-12-08 08:35] VITALS: BP 149/81
--- NOTE | 2019-12-08 08:35 | NUR ---
IV SITE WAS GOOD. NO REDNESS OR EDEMA. GAVE PAIN MEDICATION , AND THEN AT 0930 C/O RED AND LITTLE TENDER, STOPPED IV FLUIDS. CHANGED TO RAC WITH #20 AFTER 2 ATTEMPTS. PT TOLERATED WELL. CONTINUE TO OBSERVE AND MONITOR.
--- NOTE | 2019-12-08 08:35 | NUR ---
ASSESSMENT IS COMPLTED: IV SITE IS FREE FROM REDNESS OR EDEMA. HR IS REG,PULSES ARE STRONG X4, ABD IS SOFT WITH ACTIVE BS. BREATH SOUNDS ARE CLEAR,BILATERALLY, TELE MONITOR IN PLACE. SCROTUM IS LARGE. PT C/O HAVING TO VOID A LOT. CONITNUE TO OBSERVE AND MONITOR.
[2019-12-08 11:01] VITALS: BP 140/76
--- NOTE | 2019-12-08 12:45 | NUR ---
PT IS RELAXING IN BED WITH NO DISTRESS NOTED. IV SITE IS FREE FROM REDNESS OR EDEMA.
--- NOTE | 2019-12-08 13:03 | NUR ---
PT IS RECEIVING VANCOMYCIN 1250MG IV Q8H FOR UTI/SEPSIS, SEPSIS SEEMS TO BE RESPONDING WELL CLINICALLY TO CURRENT DOSE. TROUGH TODAY REMAINED 12. CONTINUE CURRENT DOSE, RE-CHECK TROUGH 12/09 @ 0930. PHARMACY WILL CONTINUE TO FOLLOW
[2019-12-08 15:35] VITALS: BP 140/76
--- NOTE | 2019-12-08 16:45 | NUR ---
PT IS RELAXING IN BED WITH NO DISTRESS NOTED. IV SITE IS FREE FROM REDNESS OR EDEMA. CONTINUE TO OSBERVE AND MONITOR.
--- NOTE | 2019-12-08 18:27 | NUR ---
PAIN MEDICATION WAS GIVEN AT 1740 WAS CHANGED FROM IV TO ORAL
[2019-12-08 19:30] VITALS: BP 146/81
--- NOTE | 2019-12-08 19:45 | NUR ---
PT RESTING IN BED, NO SIGNS OF DISTRESS NOTED, RESP EVEN AND UNLABORED. PT ALERT AND ORIENTED X3, DISCUSSED POC, PT VOICES NO NEEDS OR COMPLAINTS AT THIS TIME, SCROTUM RED AND SWOLLEN, ASSESSMENT COMPLETED AT THIS TIME, CALL LIGHT IN REACH,CONTINUE TO MONITOR.
--- NOTE | 2019-12-08 21:43 | NUR ---
PT RESTING IN BED WATCHING TV, NO SIGNS OF DISTRESS NOTED, RESP EVEN AND UNLABORED. CALL LIGHT IN REACH,CONTINUE TO MONITOR.
[2019-12-08 23:00] VITALS: BP 133/80
--- NOTE | 2019-12-09 00:09 | NUR ---
PT RESTING IN BED WITH EYES CLOSED, NO SIGNS OF DISTRESS NOTED, RESP EVEN AND UNLABORED. CALL LIGHT IN REACH,CONTINUE TO MONITOR.
--- NOTE | 2019-12-09 03:39 | NUR ---
PT RESTING IN BED, C/O PAIN MEDICATED PER JUL. CALL LIGHT IN REACH,CONTINUE TO MONITOR.
[2019-12-09 03:45] VITALS: BP 125/79
--- NOTE | 2019-12-09 06:16 | NUR ---
PT RESTING IN BED, C/O PAIN. PT MEDICATED FOR PAIN. CALL LIGHT IN REACH,CONTINUE TO MONITOR.
--- NOTE | 2019-12-09 07:15 | NUR ---
REPORT RECEIVED FROM CHANTELLE CHIRINOS. PT RESTING IN BED SEMI FOWLERS; ALERT AND ORIENTED. C/O 7/10 SCROTUM PAIN. RESPIRATIONS EVEN AND UNLABORED ON ROOM AIR. TELE ON. IV FLUIDS INFUSING AT KVO; IV SITE APPEARS HEALTHY. PLAN OF CARE REVIEWED. PT ENCOURAGED TO VERBALIZE CONCERNS. STATES UNDERSTANDING. SAFETY MEASURES IN PLACE. CALL LIGHT WITHIN REACH.
[2019-12-09 08:00] VITALS: BP 135/77
--- NOTE | 2019-12-09 08:45 | NUR ---
AMBULATING IN HALLWAYS WITH WALKER; GAIT AND PAIN LEVEL DURING AMBULATION IMRPOVED. PT ENCOURAGED TO BE UP IN CHAIR FOR MEALS AND AMBULATE AFTERWARDS. STATES UNDERSTANDING.
[2019-12-09 11:41] VITALS: BP 139/76
--- NOTE | 2019-12-09 12:02 | NUR ---
SITTING UP IN BEDSIDE CHAIR FOR LUNCH. PERCOCET GIVEN FOR PERSISTENT PAIN TO SCROTUM; LESS SWELLING AND REDNESS NOTED; IMPROVED FROM BEFORE. PT DOES CONTINUE TO REPORT URINARY INCONTINENCE, BUT ALSO VOIDING CLEAR YELLOW URINE IN URINAL IN ADEQUATE AMOUNTS.
--- NOTE | 2019-12-09 13:33 | NUR ---
DR. BOYER ON FLOOR FOR CONSULT. PT UPDATED ON F/U APPT WITH DR. BOYER FOR OUTPATIENT CYSTO 12/29/19 AT 10AM AT PC LOCATION.
[2019-12-09 16:14] VITALS: BP 136/77
[2019-12-09 19:35] VITALS: BP 141/80
--- NOTE | 2019-12-09 20:45 | NUR ---
PT RESTING IN BED, NO SIGNS OF DISTRESS NOTED, RESP EVEN AND UNLABORED. PT ALERT AND ORIENTED X3, DISCUSSED POC, PT STATES HE WOULD LIKE SOME CREAM FOR HIS RASH, NOTED PT'S BUTTOCK REDDENED, SKIN INTACT. BARRIER CREAM APPLIED, PT TOLERATED WELL. ASSESSMENT COMPLETED. PT REQUESTING TO AMBULATE HALLWAY, CALL LIGHT IN REACH,CONTINUE TO MONITOR.
[2019-12-10] VITALS (7 sets, daily range): BP systolic 120–138; BP diastolic 72–81
--- NOTE | 2019-12-10 | NUR ---
PT RESTING IN BED WITH EYES CLOSED, NO SIGNS OF DISTRESS NOTED, RESP EVEN AND UNLABORED. CALL LIGHT IN REACH,CONTINUE TO MONITOR.
--- NOTE | 2019-12-10 01:52 | NUR ---
PT RESTING IN BED, NO SIGNS OF DISTRESS NOTED, RESP EVEN AND UNLABORED. PT MEDICATED FOR PAIN, CALL LIGHT IN REACH,CONTINUE TO MONITOR.
--- NOTE | 2019-12-10 04:03 | NUR ---
PT RESTING IN BED, NO SIGNS OF DISTRESS NOTED, RESP EVEN AND UNLABORED. PT REQUESTING SNACK, SNACK PROVIDED. VOICES NO NEEDS OR COMPLAINTS AT THIS TIME, CALL LIGHT IN REACH,CONTINUE TO MONITOR.
[2019-12-10 05:04] LABS: HEMATOCRIT 44.6 % (39.0-50.0); HEMOGLOBIN 13.4 g/dl (14.0-18.0); MEAN CELL VOLUME 87.8 fL CALC (80.0-100.0); MEAN CORPUSCULAR HGB 26.4 pG CALC (26.0-32.0); RED BLOOD COUNT 5.08 mill/uL (4.70-6.10); RED CELL DISTRI WIDTH 15.2 % (11.5-15.5)
[2019-12-10 05:36] LABS: ALKALINE PHOSPHATASE 119 u/l (38-126); ANION GAP 10 (6-22 (CALC)); BILIRUBIN, TOTAL 0.3 mg/dL (0.0-1.4); BUN 9 mg/dL (9-20); BUN/CREATININE RATIO 15 (12-20 (CALC)); CARBON DIOXIDE 30 mmol/l (22-30); CHLORIDE 101 mmol/l (95-108); CREATININE 0.6 mg/dL (0.7-1.3); GFR > 60 ML/MIN (>=60 (CALC)); GFR FOR AFR.AMER. > 60 ML/MIN (>=60 (CALC)); POTASSIUM 4.2 mmol/l (3.5-5.1); SGOT/AST 24 u/l (17-59); SODIUM 136 mmol/l (137-146)
[2019-12-10 05:40] LABS: ALBUMIN 3.5 g/dL (3.2-5.0); TOTAL PROTEIN 7.1 g/dL (6.3-8.2)
--- NOTE | 2019-12-10 08:14 | NUR ---
REPORT RECIEVED. PT RESTING WITH EYE CLOSED IN BED. AWAKENS TO VERBAL STIMULI AND ALERT AND ORIETNED X3. REPORT PAIN OF 8/10 WILL PROVIDE PRN MEDICATION. P REPORTS TEWNDERNESS ON HIS SCROTUM. ZINC CREAM APPLIED TO SCROTUM. LUNG SOUND CLEAR. HEALTHY FLUSHES. WILL CONTINUE TO MONITOR.
--- NOTE | 2019-12-10 12:00 | NUR ---
IV FLUIDS INFUSING AT [facility]; IV SITE APPEARS HEALTHY. CONTINUES TO C/O PERSISTENT SCROTAL PAIN; ICE PACK OFFERED AND MEDICATED PER SCHEDULE. SITTING UP WATCHING TV. CALL LIGHT WITHIN REACH.
--- NOTE | 2019-12-10 13:34 | NUR ---
S: ANN SOLIS is a 49 M who presents with UTI. He has a history of diabetes and hepatitis C. All medications in patient's chart were reviewed. O: VS: BP 120/72 mmHg, P 88 bpm, RR 18 breaths/min, T 97 F W 84.3 kg, HT 190.5 cm, Scr= 0.6 mg/dL, CrCl= 177 ml/min A: Blood culture shows no growth. Urine culture on 12/01 showed E.coli which is sensitive to ceftriaxone. P: Patient is on ceftriaxone 1g IV Q24H. Vancomycin trough level is 16 on 12/09. Vancomycin ordered for pharmacy to dose. Patient was on vancomycin 1250 mg IV Q8H. Change to Vancomycin 1000 mg IV Q8H. Vancomycin trough is drawn before the 4th dose on 12/10 at 1730. Vancomycin goal trough is between 10-15 mcg/ml. Pharmacy will follow and or advise on antibiotics use as needed.
--- NOTE | 2019-12-10 16:00 | NUR ---
PT ENCOURAGED TO GET UP TO CHAIR FOR MEALS AND AMBULATE WITH WALKER; IS NOT PROACTIVE WITH ADLS; NEEDS ENCOURAGEMENT. VOIDING CLEAR YELLOW URINE IN BEDSIDE URINAL.
--- NOTE | 2019-12-10 20:15 | NUR ---
ASSESSMENT COMPLETED. IV SITE PATENT AND INFSUING ORDERED IVF WELL. PT. REQUESTING IT TO BE CHANGED HE DOESNT LIKE IT IN THE BEND OF THE ARM; WILL RESTART SHORTLY. SLIGHT SWELLING AND REDNESS NOTED TO SCROTUM AND IS ELEVATED. URINALS AT BEDSIDE. VOICES NO OTHER CONCERNS. CALL LIGHT IS IN REACH. WILL CONTINUE TO MONITOR.
--- NOTE | 2019-12-10 20:58 | NUR ---
PT. C/O SCROTAL PAIN 10/10 AND MEDICATED WITH ORDERD PRN PERCOCET; WILL REASSESS.
--- NOTE | 2019-12-11 00:30 | NUR ---
RESTING IN BED WITH EYES CLOSED; RESP. EVEN AND UNLABORED. CALL LIGHT IS IN REACH.
--- NOTE | 2019-12-11 02:05 | NUR ---
PT. WATCHING TV AND DENIES NEEDS. VOCIES NO CONCERNS. CALL LIGHT IS IN REACH.
[2019-12-11 04:28] VITALS: BP 129/80
--- NOTE | 2019-12-11 04:28 | NUR ---
VSS. NO DISTRESS NOTED; DENIES NEEDS/PAIN. URINAL EMPTIED. CALL LIGHT IS IN REACH. ENCOURAGED TO CALL FOR ANY NEEDS.
--- NOTE | 2019-12-11 05:19 | NUR ---
PT. C/O SCROTAL PAIN AND MEDICATED WITH ORDERED PRN PERCOCET AND PO FLUIDS OFFERED. URINAL EMPTIED. CALL LIGHT IS IN REACH.
[2019-12-11 07:50] VITALS: BP 131/80
--- NOTE | 2019-12-11 07:50 | NUR ---
ASSESSMENT IS COMPLETED: IV SITE IS FREE FROM REDNESS OR EDEMA. HR IS REG,PULSES ARE STRONG X4, ABD IS SOFT WITH ACTIVE BS, BREATH SOUNDS ARE CLEAR,BILATERALLY, SOME SLIGHT EDEMA NOTED ON SCROTAL AREA. TELE MONITOR IN PLACE.,
[2019-12-11] MEDS ORDERED: KEFLEX500 MG PO (09:47)
[2019-12-11] MEDS ORDERED: [UNRECOGNIZED DRUG - OTHER] TOP (10:02)
[2019-12-11 10:43] VITALS: BP 126/74
[2019-12-11 12:17] VITALS: BP 126/74
--- NOTE | 2019-12-11 12:50 | NUR ---
PT'S IV SITE AND TELE DISCONTINUED CATHETER INTACT. NO REDNESS OR EDEMA. DISCHARGE INSTRUCTIONS GIVEN AND VERBALIZED UNDERSTANDING. FAMILY CAME AND BROUGHT CLOTHES. CONTINUE TO OBSERVE AND MONITOR. Discharge instructions given. Patient verbalizes understanding of same. Discharged in stable condition via Wheelchair to Home with family. All belongings sent with pt.
== END 2019-12-11 12:50 | disposition home or self-care (01) | DRG 872 ==
LOC: ED 09:36 → ED-I 12:20 → ED 12:34 → MS2 12:35 → ED-I 12:35 → MS2 13:29 → ICU 15:50 → MS2 12-04 18:30 → ICU 12-06 19:25 → MS2 12-07 10:15
PROVIDERS: Family Medicine; Nurse Practitioner Family; ADMIT Internal Medicine; ATTEND Internal Medicine
PROC: 0T9B70Z Drainage of Bladder with Drainage Device, Via Natural or Artificial Opening (ICD-10-PCS; principal; 2019-12-04)
DX: A41.9 Sepsis, unspecified organism (principal); N39.0 Urinary tract infection, site not specified; N45.3 Epididymo-orchitis; E11.65 Type 2 diabetes mellitus with hyperglycemia; E11.69 Type 2 diabetes mellitus with other specified complication; N33 Bladder disorders in diseases classified elsewhere; R39.89 Other symptoms and signs involving the genitourinary system; E87.6 Hypokalemia; B19.20 Unspecified viral hepatitis C without hepatic coma; G89.4 Chronic pain syndrome; F17.210 Nicotine dependence, cigarettes, uncomplicated; B96.20 Unspecified Escherichia coli [E. coli] as the cause of diseases classified elsewhere; Z79.4 Long term (current) use of insulin; Z20.828 Contact with and (suspected) exposure to other viral communicable diseases
CPT/HCPCS: J1650; J3370; Q9967

== ENCOUNTER 2020-03-15 00:43 | Emergency (ER) | payer MEDICARE, MEDICAID ==
[~2020-03-15] VITALS: Ht 190.5 cm; Wt 82.0 kg
[~2020-03-15 00:43] MED LIST changes: +HUMALOG100 UNIT/M SC; +KEFLEX500 MG PO; +METFORMIN HYD1000 MG PO; +[UNRECOGNIZED DRUG - OTHER] TOP
[2020-03-15] MEDS ORDERED: METFORMIN500 M2 PO (01:56)
[2020-03-15] MEDS ORDERED: DOXYCYCLINE100 MG PO (01:58)
[2020-03-15] MEDS ORDERED: BACTRIM DS1 TAB PO (01:58)
[2020-03-15] MEDS ORDERED: BP MED PO (02:00)
[2020-03-15] MEDS ORDERED: CHOLESTEROL PILL PO (02:01)
[2020-03-15] MEDS ORDERED: JARDIANCE10 MG PO (02:02)
[2020-03-15 02:14] LABS: URINE BILIRUBIN - DIPSTICK NEGATIVE (NEGATIVE); URINE BLOOD DIPSTICK TRACE-INTACT (NEGATIVE); URINE COLOR YELLOW; URINE GLUCOSE - DIPSTICK >=1000 mg/dL (NEGATIVE); URINE KETONE NEGATIVE (NEGATIVE); URINE LEUK ESTERASE NEGATIVE (NEGATIVE); URINE NITRITE - DIPSTICK NEGATIVE (Negative); URINE PROTEIN - DIPSTICK 30 mg/dL (NEG-TRACE); URINE UROBILINOGEN - DIPSTICK 0.2 E.U./dL (0.2)
[2020-03-15 02:15] LABS: HEMATOCRIT 41.7 % (39.0-50.0); HEMOGLOBIN 13.7 g/dl (14.0-18.0); IMMATURE GRANULOCYTES 0.3 % (0.0-5.0); MEAN CELL VOLUME 85.8 fL CALC (80.0-100.0); MEAN CORPUSCULAR HGB 28.2 pG CALC (26.0-32.0); MEAN CORPUSCULAR HGB CONC 32.9 g/dL CAL (32.0-36.0); NEUT# 5.6 thou/uL (1.82-7.42); RED BLOOD COUNT 4.86 mill/uL (4.70-6.10); RED CELL DISTRI WIDTH 14.6 % (11.5-15.5)
[2020-03-15 02:26] LABS: ALKALINE PHOSPHATASE 136 u/l (38-126); ANION GAP 12 (6-22 (CALC)); BILIRUBIN, TOTAL 0.3 mg/dL (0.0-1.4); BUN 10 mg/dL (9-20); BUN/CREATININE RATIO 17 (12-20 (CALC)); CARBON DIOXIDE 26 mmol/l (22-30); CHLORIDE 101 mmol/l (95-108); CREATININE 0.6 mg/dL (0.7-1.3); GFR > 60 ML/MIN (>=60 (CALC)); GFR FOR AFR.AMER. > 60 ML/MIN (>=60 (CALC)); SGOT/AST 27 u/l (17-59); SODIUM 135 mmol/l (137-146); TOTAL PROTEIN 7.8 g/dL (6.3-8.2)
[2020-03-15 02:31] LABS: URINE BACTERIA MODERATE hpf; URINE EPITHELIAL CELLS FEW EPI/hpf (0-FEW); URINE WBC 50-100 WBC/hpf (0-5)
[2020-03-15] MEDS ORDERED: CIPROFLOXACN500 MG PO (02:49)
[2020-03-15 04:50] VITALS: BP 147/82
== END 2020-03-15 04:50 | disposition home or self-care (01) ==
LOC: ED 00:43
DX: S91.332A Puncture wound without foreign body, left foot, initial encounter (principal); L08.9 Local infection of the skin and subcutaneous tissue, unspecified; N39.0 Urinary tract infection, site not specified; E11.65 Type 2 diabetes mellitus with hyperglycemia; I10 Essential (primary) hypertension; B19.20 Unspecified viral hepatitis C without hepatic coma; J45.909 Unspecified asthma, uncomplicated; F17.210 Nicotine dependence, cigarettes, uncomplicated; W22.8XXA Striking against or struck by other objects, initial encounter; Z79.4 Long term (current) use of insulin

== ENCOUNTER 2020-03-23 15:47 | Inpatient (IN) | payer MEDICARE, MEDICAID ==
[~2020-03-23] VITALS: Ht 190.5 cm; Wt 76.0 kg
[~2020-03-23 15:47] MED LIST changes: +BP MED PO; +CHOLESTEROL PILL PO; +DOXYCYCLINE100 MG PO; +JARDIANCE10 MG PO; +METFORMIN500 M2 PO
--- NOTE | 2020-03-23 16:16 | NUR ---
PATEINT TO ROOM VIA WHEELCHAIR AND PHYSICIAN AT BEDSIDE FOR EVAL
[2020-03-23] MEDS ORDERED: NOVOLIN 70/30 SC (16:17)
--- NOTE | 2020-03-23 16:24 | NUR ---
PT ALERT AND ORIENTED X3. LT FACIAL SWELLING EXTENDING INTO LT NECK, WARM TO TOUCH. PT STATES IT STARTED YESTERDAY.
--- NOTE | 2020-03-23 16:43 | NUR ---
IV VANCOMYCIN INFUSING PER MAR ORDER. PLAN OF CARE DISCUSSED WITH PT. VEBRALIZED UNDERSTANDING. DENIES ANY NEEDS. CALL LIGTH WITHIN REACH.
[2020-03-23 16:47] LABS: IMMATURE GRANULOCYTES 0.4 % (0.0-5.0); MEAN CELL VOLUME 87.5 fL CALC (80.0-100.0); MEAN CORPUSCULAR HGB 28.1 pG CALC (26.0-32.0); MEAN CORPUSCULAR HGB CONC 32.1 g/dL CAL (32.0-36.0); NEUT# 9.07 thou/uL (1.82-7.42); RED BLOOD COUNT 5.66 mill/uL (4.70-6.10); RED CELL DISTRI WIDTH 15.1 % (11.5-15.5)
[2020-03-23 17:00] LABS: HEMATOCRIT 49.5 % (39.0-50.0); HEMOGLOBIN 15.9 g/dl (14.0-18.0)
[2020-03-23 17:14] LABS: ACT PARTIAL THROMBO TIME 26.8 SECONDS (20.0-32.5); INTERNATIONAL NORMALIZED RATIO 0.9 RATIO (0.7-1.3); PROTHROMBIN TIME 9.3 SECONDS (9.0-12.5)
[2020-03-23 17:15] LABS: ALBUMIN 4.5 g/dL (3.2-5.0); ALKALINE PHOSPHATASE 153 u/l (38-126); BUN 14 mg/dL (9-20); BUN/CREATININE RATIO 20 (12-20 (CALC)); CARBON DIOXIDE 28 mmol/l (22-30); CHLORIDE 98 mmol/l (95-108); CREATININE 0.7 mg/dL (0.7-1.3); GFR > 60 ML/MIN (>=60 (CALC)); GFR FOR AFR.AMER. > 60 ML/MIN (>=60 (CALC)); SGOT/AST 30 u/l (17-59); SODIUM 135 mmol/l (137-146); TOTAL PROTEIN 8.7 g/dL (6.3-8.2)
[2020-03-23 17:17] LABS: ANION GAP 14 (6-22 (CALC)); POTASSIUM 4.8 mmol/l (3.5-5.1)
[2020-03-23 17:18] LABS: BILIRUBIN, TOTAL 0.7 mg/dL (0.0-1.4)
--- NOTE | 2020-03-23 17:43 | NUR ---
PT RETURNED FROM CT IN NO DISTRESS. STATES MUCH RELIEF WITH PAIN MED 07/06 AT THIS TIME
--- NOTE | 2020-03-23 18:30 | NUR ---
IV ABT INFUSING WELL. PT RESP EVEN AND UNLABORED AT THIS TIME. UPDATED ON POC
--- NOTE | 2020-03-23 19:15 | NUR ---
URINE SPECIMEN COLLECTED, AWARE OF PLANNED ADMISSION AND PO FLUIOS PROVIDED REQUESTED.
--- NOTE | 2020-03-23 19:49 | NUR ---
PT REQUESTING MEAL TRAY STATING I HAVEN'T EATEN SINCE BREAKFAST (PT DIDN'T RRIVE TO ER UNTIL 1600) INFORMED IT MAY BE A COLD TRAY BUT THAT WE WOULD TRY TO FIND SOMETHING FOR HIM, ACCU CHECK 320 AND INSULIN GIVEN ORDERED. CALL OSMAN WITHIN REACH, PT AWARE OF PLANNED ADMISSION ADND LAXMIOOM ASSIGNMENT.
--- NOTE | 2020-03-23 20:09 | NUR ---
REPORT CALLED TO ANN ON MED SURG
[2020-03-23 20:18] VITALS: BP 143/69
--- NOTE | 2020-03-23 20:25 | NUR ---
PT TRASNP[ORTED TO MED SURG RM 273 VIA WHEELCAHIR, ALL BELONGINGS WITH PT, NO TELEMETRY ORDERED
--- NOTE | 2020-03-23 20:29 | NUR ---
REPORT RECEIVED FROM ED VIA WC. PT TRANSFERED FROM THE BED TO THE CHAIR WITHOUT DIFFICULTY. PT ALERT & ORIENTED. PT ORIENTED TO THE BEDROOM LIGHTS, TV AND CALL OSMAN CONTROLS. ASSESSMENT AND VITALS COMPLETE; ALERT AND ORIENTED. PT DENIES PAIN. RESPIRATIONS EVEN AN UNLABORED ON ROOM AIR AT REST. HEART SOUNDS HEARD REGLULAR. LEFT SIDE OF FACE HAS VISIBLE SWELLING. aIRWAY IS PATENT AND SPEECH IS CLEAR. PT HAS SCABING OVER FROM WOUNDS ON THE SOLES OF BOTH FEET. PT HAS SACABING BILATERLLY ON HIS LEGS. PT ENCOURAGED TO VERBALIZE CONCERNS. STATES UNDERSTANDING. SAFETY MEASURES IN PLACE. CALL LIGHT WITHIN REACH.
--- NOTE | 2020-03-24 00:06 | NUR ---
PT LAYING IN BED WITH EYES CLOSED, APPEARS TO BE SLEEPING, APPEARS COMFORTABLE AND IN NO DISTRESS. RESPIRATIONS REGULAR AND UNLABORED. ITEMS REMAIN WITHIN REACH, CALL OSMAN REMAINS WITHIN REACH. BED REMAINS LOCKED AND IN LOW POSITION WITH BEDRAILS UP X2. WILL CONTINUE TO MONITOR.
--- NOTE | 2020-03-24 04:05 | NUR ---
PT RESTING IN BED, NO SIGNS OF DISTRESS NOTED, RESP EVEN AND UNLABORED. PT VOICES NO NEEDS OR COMPLAINTS AT THIS TIME. CALL LIGHT IN REACH,CONTINUE TO MONITOR.
[2020-03-24 04:19] VITALS: BP 123/77
[2020-03-24 05:31] LABS: HEMATOCRIT 45.4 % (39.0-50.0); HEMOGLOBIN 14.8 g/dl (14.0-18.0); IMMATURE GRANULOCYTES 0.3 % (0.0-5.0); MEAN CORPUSCULAR HGB 28.4 pG CALC (26.0-32.0); MEAN CORPUSCULAR HGB CONC 32.6 g/dL CAL (32.0-36.0); NEUT# 8.75 thou/uL (1.82-7.42); RED BLOOD COUNT 5.22 mill/uL (4.70-6.10); RED CELL DISTRI WIDTH 15.3 % (11.5-15.5)
[2020-03-24 05:59] LABS: ALBUMIN 3.9 g/dL (3.2-5.0); ALKALINE PHOSPHATASE 120 u/l (38-126); ANION GAP 13 (6-22 (CALC)); BILIRUBIN, TOTAL 0.6 mg/dL (0.0-1.4); BUN 13 mg/dL (9-20); BUN/CREATININE RATIO 20 (12-20 (CALC)); CARBON DIOXIDE 26 mmol/l (22-30); CHLORIDE 100 mmol/l (95-108); CREATININE 0.6 mg/dL (0.7-1.3); GFR > 60 ML/MIN (>=60 (CALC)); GFR FOR AFR.AMER. > 60 ML/MIN (>=60 (CALC)); SGOT/AST 23 u/l (17-59); SODIUM 134 mmol/l (137-146); TOTAL PROTEIN 7.5 g/dL (6.3-8.2)
--- NOTE | 2020-03-24 07:00 | NUR ---
REPORT RECEIVED FROM ANNRN;PT RESTING IN SEMI FOWLERS POSITION;INTRODUCED SELF TO PT AND POC DISCUSSED;RESPIRATIONS EVEN AND UNLABORED ON RA;PT REPORTS FACIAL PAIN AND REQUESTS PAIN MEDICATION, PT TO BE MEDICATED PER EMAR;PT DENIES ANY ADDITIONAL NEEDS AT THIS TIME AND IS ENCOURAGED TO CALL FOR ASSISTANCE IF NEEDED;FALL PRECAUTIONS IN PLACE WITH BED IN THE LOWEST POSITION AND CALL LIGHT IN REACH;WILL CONTINUE TO MONITOR
--- NOTE | 2020-03-24 07:30 | NUR ---
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
[2020-03-24 07:31] VITALS: BP 125/72
--- NOTE | 2020-03-24 08:47 | NUR ---
AT BEDSIDE DISCUSSING POC.
--- NOTE | 2020-03-24 08:51 | NUR ---
PT REPORT PAIN MEDICATION HAS NOT RELIEVED PAIN TO LEFT FACE AND NECK , [place] AN[facility] NOTIFIED.AWATING NEW ORDERS.
--- NOTE | 2020-03-24 10:50 | NUR ---
PT REPORTS LEFT FACE AND NECK PAIN RATING 8/10 ON THE PAIN SCALE AND REQUESTS PAIN MEDICATION, PT MEDICATED WITH PRN MORPHINE 2MG IVP PER ORDER;WILL CONTINUE TO MONITOR
--- NOTE | 2020-03-24 11:40 | NUR ---
PT RESTING IN SEMI FOWLERS POSITION;RESPIRATIONS EVEN AND UNLABORED ON RA;PT REPORTS LEFT NECK AND FACE PAIN HAS DECREASED TO 6/10 ON THE PAIN SCALE AFTER PRN MORPHINE ADMINISTRATION;IV SITE REMAINS PATENT;PT DENIES ANY ADDITIONAL NEEDS AT THIS TIME;ASSESSMENT REMAINS UNCHANGED AT THIS TIME;ENCOURAGED TO CALL FOR ASSISTANCE IF NEEDED;CALL LIGHT IN REACH;WILL CONTINUE TO MONITOR
--- NOTE | 2020-03-24 12:15 | NUR ---
INFORMED CONSENT OBTAINED AT THIS TIME FOR INCISION AND DRAINAGE OF FACE AT BEDSIDE,ALL QUESTIONS ANSWERED AND PT EDUCATED ON RISKS VS.BENEFITS;PT DENIES ANY ADDITIONAL NEEDS;ENCOURAGED TO CALL FOR ASSISTANCE IF NEEDED;CALL LIGHT IN REACH;WILL CONTINUE TO MONITOR
--- NOTE | 2020-03-24 13:40 | NUR ---
AT BEDSIDE PREFORMING I&D TO LEFT FACE.SITE CLEANSED, PT ADMINISTERED 1% LIDOCAINE INJECTION BY [facility] SITE SECURED WITH BANDAID. PT TOLERATED WELL.
--- NOTE | 2020-03-24 15:30 | NUR ---
PT RESTING IN SEMI FOWLERS POSIITON;RESPIRATIONS EVEN AND UNLABORED ON RA;PT REPORTS LEFT NECK AND FACE PAIN RATING 8/10 ON THE PAIN SCALE, PT MEDICATED WITH PRN MORPHINE 2MG IVP AT THIS TIME;IV SITE PATENT;TAL PEYMAN AND PUDDING PROVIDED PER REQUEST;PT DENIES ANY ADDITIONAL NEEDS AND IS ENCOURAGED TO CALL FOR ASSISTANCE IF NEEDED;FALL PRECAUTIONS IN PLACE WITH BED IN THE LOWEST POSITION AND CALL LIGHT IN REACH;WILL CONTINUE TO MONITOR
[2020-03-24 15:33] VITALS: BP 118/74
--- NOTE | 2020-03-24 19:30 | NUR ---
PATIENT SITTING UP IN BED-AWAKE ALERT AND ORIENTEDX3. SLIGHT SWELLING NOTED TO LEFT FACE AND NECK. SALINE LOCK TO RIGHT AC INTACT AND HEALTHY AT THIS TIME. NO COMPLAINTS AT THIS TIME. CALL LIGHT IN REACH. WILL CONT TO MONITOR.
[2020-03-24 20:00] VITALS: BP 127/76
--- NOTE | 2020-03-24 22:31 | NUR ---
PATIENT RESTING IN [id number]-[id number] IS 205 AT THIS TIME-PATIENT COVERED WITH NOVALOG 3UNITS SQ PER NOVALOG SLIDING SCALE COVERAGE PROTOCOL. HS SNACK PROVIDED. C/O NECK PAIN AND MEDICATED WITH MORPHINE 2MG IVP. PATIENT STATES THAT THE ORAL LORTAB WAS NOT EFFECTIVE. PATIENT EDUCATED ON USE OF PAIN MEDS AND POSSIBLE SIDE EFFECT-CONSTIPATION. DECLINES MOM AT THIS TIME. STATES VOIDING QS WITHOUT ANY DIFFICULTY. LUNGS ARE CLEAR. SAFETY PRECAUTIONS REINFORCED. CALL LIGHT IN REACH. WILL CONT TO MONITOR.
--- NOTE | 2020-03-25 00:05 | NUR ---
PATIENT RESTING IN BED-UNASYN HUNG ORDERED VIA RIGHT AC SITE. VOIDING QS DARRELL URINE-600CC IN URINAL. PROVIDED WITH RONNIE CRACKERS AND PEANUT BUTTER FOR SNACK. CALL LIGHT IN REACH. WILL CONT TO MONITOR.
--- NOTE | 2020-03-25 03:18 | NUR ---
PATIENT APPEARS SLEEPING AT THIS TIME WITH HOB SLIGHTLY ELEVATED AND EYS CLOSED. RESPS ARE EVEN AND UNLABORED. CALL LIGHT IN REACH. WILL CONT TO MONITOR.
[2020-03-25 04:10] VITALS: BP 141/2
--- NOTE | 2020-03-25 04:35 | NUR ---
PATIENT RESTING IN BED-C/O NECK AND LEFT FACE PAIN-8/10 ON PAIN SCALE. MEDICATED WITH MORPHINE 2MG IVP. WARM MOIST COMPRESS APPLIED TO LEFT FACE. SALINE LOCK INTACT TO RIGHT AC-SITE REMAINS HEALTHY. CALL LIGHT IN REACH. WILL CONT TO MONITOR.
[2020-03-25 05:51] LABS: HEMATOCRIT 42.4 % (39.0-50.0); HEMOGLOBIN 13.7 g/dl (14.0-18.0); MEAN CELL VOLUME 87.4 fL CALC (80.0-100.0); MEAN CORPUSCULAR HGB 28.2 pG CALC (26.0-32.0); MEAN CORPUSCULAR HGB CONC 32.3 g/dL CAL (32.0-36.0); RED BLOOD COUNT 4.85 mill/uL (4.70-6.10); RED CELL DISTRI WIDTH 14.9 % (11.5-15.5)
[2020-03-25 06:32] LABS: ALBUMIN 3.6 g/dL (3.2-5.0); ALKALINE PHOSPHATASE 108 u/l (38-126); ANION GAP 11 (6-22 (CALC)); BILIRUBIN, TOTAL 0.6 mg/dL (0.0-1.4); BUN 15 mg/dL (9-20); BUN/CREATININE RATIO 25 (12-20 (CALC)); CARBON DIOXIDE 26 mmol/l (22-30); CHLORIDE 100 mmol/l (95-108); CREATININE 0.6 mg/dL (0.7-1.3); GFR > 60 ML/MIN (>=60 (CALC)); GFR FOR AFR.AMER. > 60 ML/MIN (>=60 (CALC)); SGOT/AST 27 u/l (17-59); SODIUM 134 mmol/l (137-146); TOTAL PROTEIN 7.2 g/dL (6.3-8.2)
[2020-03-25 07:43] VITALS: BP 137/80
--- NOTE | 2020-03-25 11:47 | NUR ---
Patient alert and oriented x4, c/o lft neck pain, swelling, tender to touch. Patient given vicodin for pain, Expained to patient that vicodin will be medication that he may be discharge on and we needed to see if medication will control the pain, patient verb understanding. Doctor informed the patient that he will be keeping for one more night to receive IV antibiotics. Will continue to monitor for safety
--- NOTE | 2020-03-25 11:51 | NUR ---
Patient oob to chair, having difficulty, swallowing. Daughter at bedside. Patient refused morning medication, stated that he was unable to swallow. Patient alert and oriented x4. Will continue to monitor for safety
[2020-03-25 14:55] VITALS: BP 145/83
--- NOTE | 2020-03-25 20:01 | NUR ---
RECEIEVED REPORT FROM NURSE. PT RESTING IN HIGH FOLWERS UPON ENTERIN ROOM. INTRODUCED SELF TO PT AND DISCUSSED POC. ASSESSMENT AND VITALS OBATINED RESPIRATIONS ARE EVEN AND LUNG SOUNDS ARE STRONG ON RA. HEART RHYTHM IS NORMAL. BOWEL SOUNDS ARE ACTIVE, LAST REPORTED BM 03/25/20. RADIAL AND PEDAL PULSES ARE STRONG WITH NORMAL CPAILLARY REFILL. #18G IN RFA SITE APPEARS HEALTHY AND PATENT. PT STILL HAS SOME LEFT FACIAL/NECK SWELLING. PT DENIES OF ANY PAIN OR DISCOMFORTS AT THIS TIME. ALL SAFETY AND ISOLATION PRECAUTIONS ARE IN PLACE. WILL CONTINUE TO MONITOR.
[2020-03-25 20:20] VITALS: BP 132/82
[2020-03-26 00:06] VITALS: BP 141/84
[2020-03-26 04:25] VITALS: BP 126/82
--- NOTE | 2020-03-26 07:00 | NUR ---
SHIFT CHANGE REPORT, PT AWAKE ALERT AND ORIENTED RESTING IN BED, C/O MILD PAIN TO LEFT JAW, ALL NEEDS ADDRESSED, CALL OSMAN IN REACH.
[2020-03-26 07:08] VITALS: BP 135/81
[2020-03-26] MEDS ORDERED: AUGMENTIN500TAB PO (10:38)
[2020-03-26 12:00] VITALS: BP 138/84
--- NOTE | 2020-03-26 13:15 | NUR ---
Discharge instructions given. Patient verbalizes understanding of same. Discharged in good condition via Wheelchair to Home with family. All belongings sent with pt.
== END 2020-03-26 13:02 | disposition home or self-care (01) | DRG 603 ==
LOC: ED 15:47 → ED-I 18:44 → ED 18:53 → MS2 18:54
PROVIDERS: Nurse Practitioner Family; ADMIT Internal Medicine; ATTEND Internal Medicine
PROC: 0H91XZZ Drainage of Face Skin, External Approach (ICD-10-PCS; principal; 2020-03-24)
DX: L02.01 Cutaneous abscess of face (principal); L03.211 Cellulitis of face; E11.65 Type 2 diabetes mellitus with hyperglycemia; I10 Essential (primary) hypertension; B19.20 Unspecified viral hepatitis C without hepatic coma; J45.909 Unspecified asthma, uncomplicated; E78.5 Hyperlipidemia, unspecified; F17.200 Nicotine dependence, unspecified, uncomplicated; Z79.4 Long term (current) use of insulin
CPT/HCPCS: G0378; J1650; Q9967

== ENCOUNTER 2020-09-05 16:53 | Inpatient (IN) | payer MEDICARE, MEDICAID ==
[~2020-09-05 16:53] MED LIST changes: +AUGMENTIN500TAB PO; +NOVOLIN 70/30 SC
--- NOTE | 2020-09-05 17:15 | NUR ---
AT BEDSIDE FOR EXAM WOUND CULTURES COLLECTED
--- NOTE | 2020-09-05 17:30 | NUR ---
BETADINE FOOT SOAK STARTED
[2020-09-05 17:38] LABS: HEMATOCRIT 45.5 % (39.0-50.0); HEMOGLOBIN 15.2 g/dl (14.0-18.0); IMMATURE GRANULOCYTES 0.4 % (0.0-5.0); MEAN CELL VOLUME 87.2 fL CALC (80.0-100.0); MEAN CORPUSCULAR HGB 29.1 pG CALC (26.0-32.0); MEAN CORPUSCULAR HGB CONC 33.4 g/dL CAL (32.0-36.0); NEUT# 3.31 thou/uL (1.82-7.42); RED BLOOD COUNT 5.22 mill/uL (4.70-6.10); RED CELL DISTRI WIDTH 13.9 % (11.5-15.5)
[2020-09-05] MEDS ORDERED: PLAVIX75 MG PO (17:49)
[2020-09-05] MEDS ORDERED: HUMALOG 751000 UNITS SC (17:49)
[2020-09-05] MEDS ORDERED: EZETIMIBE10 MG PO (17:50)
[2020-09-05 17:51] LABS: ALBUMIN 3.7 g/dL (3.2-5.0); ALKALINE PHOSPHATASE 158 u/l (38-126); ANION GAP 14 (6-22 (CALC)); BILIRUBIN, TOTAL 0.6 mg/dL (0.0-1.4); BUN 21 mg/dL (9-20); BUN/CREATININE RATIO 34 (12-20 (CALC)); CARBON DIOXIDE 25 mmol/l (22-30); CHLORIDE 99 mmol/l (95-108); CREATININE 0.6 mg/dL (0.7-1.3); GFR > 60 ML/MIN (>=60 (CALC)); GFR FOR AFR.AMER. > 60 ML/MIN (>=60 (CALC)); POTASSIUM 4.1 mmol/l (3.5-5.1); SGOT/AST 32 u/l (17-59); SODIUM 133 mmol/l (137-146); TOTAL PROTEIN 7.7 g/dL (6.3-8.2)
[2020-09-05] MEDS ORDERED: JARDIANCE25 MG PO (17:51)
[2020-09-05] MEDS ORDERED: METFORMIN HCL1000 M1 PO (17:52)
[2020-09-05] MEDS ORDERED: NORTRIPTYLIN25 MG PO (17:52)
[2020-09-05] MEDS ORDERED: CRESTOR20 MG PO (17:53)
--- NOTE | 2020-09-05 18:00 | NUR ---
Reassessment of patient completed. No distress noted.
--- NOTE | 2020-09-05 18:20 | NUR ---
ZOSYN STARTED TO LEFT AC. INFUSING WITHOUT DIFFICULTY. WCTM. TEMP 98. PRIOR TO ADMINISTRATION
--- NOTE | 2020-09-05 18:38 | NUR ---
Reassessment of patient completed. No distress noted.
--- NOTE | 2020-09-05 19:20 | NUR ---
Reassessment of patient completed. No distress noted.
--- NOTE | 2020-09-05 19:35 | NUR ---
ACCU CHECK DONE, RESULT IS 299. RECEIVED ROOM, WILL CALL REPORT.
--- NOTE | 2020-09-05 19:36 | NUR ---
ATTEMPTED TO CALL REPORT, NURSE IN A PATIENT ROOM AND WILL CALL BACK
--- NOTE | 2020-09-05 19:41 | NUR ---
REPORT CALLED TO JEWELS JUAREZ. SBAR FORMAT.
[2020-09-05 20:02] VITALS: BP 151/65
--- NOTE | 2020-09-05 20:45 | NUR ---
PHYSICAL ASSESMENT COMPLETE. PT CURRENTLY DENIES PAIN OR DISCOMFORT. SCHEDULED MEDICATIONS AND PRN MEDICATION ADMINISTERED, SEE E-MAR. PT DENIES ANY NEEDS AT THIS TIME. PLAN OF CARE REVIEWED, PT DENIES QUESTIONS, VERBALIZES UNDERSTANDING. ITEMS WITHIN REACH, BED LOCKED IN LOW POSITION W/ BEDRAILS UP X2. CALL OSMAN WITHIN REACH, AGREES TO CALL PRN.
--- NOTE | 2020-09-05 20:59 | NUR ---
PT RECEIVED FROM ED TO ROOM 268. ARRIVES VIA STRETCHER ACCOMPANIED BY ATTILA DONIS. PT AMBULATORY TO BED. GAIT UNSTEADY. PT DENIES PAIN AT THIS TIME. ORIENTED TO UNIT, ROOM, CALL OSMAN, LIGHTS, TV. ICE WATER PROVIDED. CALL OSMAN WITHIN REACH. AGREES TO CALL PRN.
[2020-09-06] VITALS: BP 140/71
[2020-09-06 04:00] VITALS: BP 141/80
--- NOTE | 2020-09-06 04:24 | NUR ---
PT RESTING IN BED, NO SIGNS OF DISTRESS NOTED, RESP EVEN AND UNLABORED. PT VOICES NO NEEDS OR COMPLAINTS AT THIS TIME. CALL LIGHT IN REACH, CONTINUE TO MONITOR.
[2020-09-06 05:25] LABS: HEMATOCRIT 50.4 % (39.0-50.0); HEMOGLOBIN 16.1 g/dl (14.0-18.0); IMMATURE GRANULOCYTES 0.4 % (0.0-5.0); MEAN CORPUSCULAR HGB 28.1 pG CALC (26.0-32.0); MEAN CORPUSCULAR HGB CONC 31.9 g/dL CAL (32.0-36.0); NEUT# 3.09 thou/uL (1.82-7.42); RED BLOOD COUNT 5.73 mill/uL (4.70-6.10)
[2020-09-06 05:53] LABS: ALKALINE PHOSPHATASE 138 u/l (38-126); ANION GAP 13 (6-22 (CALC)); BILIRUBIN, TOTAL 0.6 mg/dL (0.0-1.4); BUN 15 mg/dL (9-20); BUN/CREATININE RATIO 25 (12-20 (CALC)); CARBON DIOXIDE 25 mmol/l (22-30); CHLORIDE 102 mmol/l (95-108); CREATININE 0.6 mg/dL (0.7-1.3); GFR > 60 ML/MIN (>=60 (CALC)); GFR FOR AFR.AMER. > 60 ML/MIN (>=60 (CALC)); SGOT/AST 28 u/l (17-59); SODIUM 135 mmol/l (137-146)
--- NOTE | 2020-09-06 07:11 | NUR ---
Patient is screened for PT intervention and no needs are identified at this time although he would benefit from wound care consult if medical agrees
[2020-09-06 07:28] VITALS: BP 138/80
--- NOTE | 2020-09-06 08:00 | NUR ---
PT WAS FOUND RESTING IN BED;PT IS A&O X3;PT HAS NO REPORTS OF PAIN AT THIS TIME;VS AND ASSESSMENT WERE COMPLETED;HEART SOUNDS ARE REGULAR IN RATE AND RHYTHM;LUNG SOUNDS ARE CLEAR IN ALL GROSSMAN;RESPIRATIONS ARE EVEN AND UNLABORED ON RA;TELE IS IN PLACE;#20G IV IN RAC IS SL, PATENT AND FREE OF COMPLICATIONS;PT HAS OPEN WOUNDS PRESENT ON FEET BILATERALLY;RT FOOT MIDDLE TOE AND LEFT FOOT 2ND AND 4TH TOE ARE AFFECTED;NO DRESSING IN PLACE AT THIS TIME;SAFETY PRECAUTIONS IN PLACE;CALL LIGHT WITHIN REACH;BED IN LOWEST POSITION;WILL CONTINUE TO MONITOR.
--- NOTE | 2020-09-06 09:08 | NUR ---
CALL PLACED TO [facility] FOR CONSULT FOR ,SPOKE WITH DANIEL.
--- NOTE | 2020-09-06 09:45 | NUR ---
AT BEDSIDE DISCUSSING POC.
[2020-09-06 10:50] VITALS: BP 122/73
--- NOTE | 2020-09-06 12:00 | NUR ---
PT WAS FOUND RESTING IN BED;PT HAS NO REPORTS AT THIS TIME;TELE IS IN PLACE;#20G IV IN RAC IS SL, PATENT AND FREE OF COMPLICATIONS AT THIS TIME;SAFETY PRECAUTIONS IN PLACE;CALL LIGHT WITHIN REACH;BED IN LOWEST POSITION;WILL CONTINUE TO MONITOR.
--- NOTE | 2020-09-06 14:23 | NUR ---
S: ANN SOLIS is a 50 M who presents with toe wounds. He has a history of HTN, DM, Hep. C, abuse, asthma, tobacco use. All medications in patient's chart were reviewed. O: VS: BP 138/80 mmHg, P 90 beats per minute, RR 18 breathes per minute, T 96.9 F W 79.832 kg, HT 75 in, Scr= 0.6 mg/dL CrCl= 162.6 ml/min A: Blood cultures are pending. Wound cultures are pending. P: Patient is on Zosyn 3.375 g IV Q6H. Vancomycin ordered for pharmacy to dose. Start Vancomycin 1 gm IV Q8H. Vancomycin trough is drawn before the 4th dose on 0730. Vancomycin goal trough is between 10-15 mcg/ml. Pharmacy will follow and or advise on antibiotics use as needed.
--- NOTE | 2020-09-06 14:30 | NUR ---
PT TRANSPORTED TO [facility], [place] IN STABLE CONDITION VIA WHEELCHAIR ACCOMPANIED BY JEWELS MARSHALL
--- NOTE | 2020-09-06 14:51 | NUR ---
PT TRANSPORTED BACK TO MED/SURG ROOM 268 IN STABLE CONDITION VIA WHEELCHAIR ACCOMPANIED BY JEWELS MARSHALL
[2020-09-06 14:54] VITALS: BP 151/86
--- NOTE | 2020-09-06 16:00 | NUR ---
PT WAS FOUND RESTING IN BED;#20G IV IN RAC IS SL, PATENT AND FREE OF COMPLICATIONS;TELE IS IN PLACE;PT HAS NO REPORTS OF PAIN AT THIS DVO;SAFETY PRECAUTIONS IN PLACE;CALL LIGHT WITHIN REACH;BED IN LOWEST POSITION;WILL CONTINUE TO MONITOR.
--- NOTE | 2020-09-06 16:43 | NUR ---
PT TRANSPORTED TO [facility] IN STABLE CONDITION VIA WHEELCHAIR ACCOMPANIED BY ALLISON CARRILLO.
--- NOTE | 2020-09-06 18:40 | NUR ---
PT RETURNED VIA WC FROM [facility] ACCOMPANIED BY STAFF.
[2020-09-06 18:50] VITALS: BP 132/84
[2020-09-07] VITALS: BP 136/82
[2020-09-07 03:45] VITALS: BP 141/89
[2020-09-07 07:45] VITALS: BP 136/82
--- NOTE | 2020-09-07 08:00 | NUR ---
RESTING IN THE BED AXOX3. NOTED TOES, HE DENIES PAIN. REPOSITIOEND FOR COMFORT, SIDE RAILS UP CALL LIGHT INREACH BED LOCKED IN LOW POSITION, ALL SAFTY MEASURES IN PLACE. WILL CONTINUE TO MONIOTR THE PATIENT.
[2020-09-07 08:11] LABS: HEMATOCRIT 46.5 % (39.0-50.0); HEMOGLOBIN 15.2 g/dl (14.0-18.0); MEAN CELL VOLUME 87.7 fL CALC (80.0-100.0); MEAN CORPUSCULAR HGB 28.7 pG CALC (26.0-32.0); MEAN CORPUSCULAR HGB CONC 32.7 g/dL CAL (32.0-36.0); RED BLOOD COUNT 5.3 mill/uL (4.70-6.10); RED CELL DISTRI WIDTH 14.1 % (11.5-15.5)
[2020-09-07 08:29] LABS: ANION GAP 11 (6-22 (CALC)); BUN 13 mg/dL (9-20); BUN/CREATININE RATIO 17 (12-20 (CALC)); CARBON DIOXIDE 30 mmol/l (22-30); CHLORIDE 100 mmol/l (95-108); CREATININE 0.8 mg/dL (0.7-1.3); GFR > 60 ML/MIN (>=60 (CALC)); GFR FOR AFR.AMER. > 60 ML/MIN (>=60 (CALC)); SODIUM 136 mmol/l (137-146)
--- NOTE | 2020-09-07 09:00 | NUR ---
PT TO BE TRANSFERED TO ANOTHER FACILITY, EDUCATED PT ON TRANSFERE. WILL UPDATE NEEDED.
[2020-09-07 10:31] VITALS: BP 133/80
--- NOTE | 2020-09-07 10:46 | NUR ---
PT RESTING COMOFRTABLE IN THE BED NO DISTRESS NOTED AT THIS TIME. WILL CONTINUE TO MONITOR THE PATIENT.
--- NOTE | 2020-09-07 11:36 | NUR ---
S: ANN SOLIS is a 50 M who presents with bilateral foot infection. He has a history of DMT2, hepatitis C, hyperlipidemia, hypertension, neuropathy. All medications in patient's chart were reviewed. O: VS: BP 133/80 mmHg, P 94 beats per minute, RR 20 beats per minute, T 97.3 F W 79.832 kg, HT 75 in, Scr= 0.8 mg/dL, CrCl= 121.9 ml/min A: Preliminary blood culture results show no growth/24 hours. Final wound culture results show growth of both streptococcus agalactiae and klebsiella pneumoniae. Streptococcus agalactiae is sensitive to ampicillin and vancomycin. Klebsiella pneumoniae is sensitive to trimethoprim/sulfamethoxazole, ciprofloxacin, ampicillin/sulbactam, cefazolin, ceftazidime, ceftriaxone, gentamicin, piperacillin/tazobactam, and cefepime. P: Vancomycin ordered for pharmacy to dose. Start Vancomycin 1 gm IV Q8H. Vancomycin trough is drawn before the 4th dose on 09/08/20 @ 0730. Vancomycin goal trough is between 10-15 mcg/ml. Pharmacy will follow and or advise on antibiotics use as needed.
--- NOTE | 2020-09-07 12:21 | NUR ---
PT UPDATED ON DISCHARGE.
--- NOTE | 2020-09-07 13:39 | NUR ---
REPORT CALLED TO EDIN DONIS AT [facility]. HL FLUSHED TELE REMOVED. PT LEFT TO GO TO [facility] VIA [facility].
== END 2020-09-07 13:41 | disposition short-term general hospital (02) | DRG 638 ==
LOC: ED 16:53 → ED-I 18:00 → ED 18:59 → MS2 19:00
PROVIDERS: Emergency Medicine; Nurse Practitioner; Nurse Practitioner Family; ADMIT Internal Medicine; ATTEND Internal Medicine
DX: E11.69 Type 2 diabetes mellitus with other specified complication (principal); M86.172 Other acute osteomyelitis, left ankle and foot; M86.171 Other acute osteomyelitis, right ankle and foot; E11.52 Type 2 diabetes mellitus with diabetic peripheral angiopathy with gangrene; I96 Gangrene, not elsewhere classified; L97.528 Non-pressure chronic ulcer of other part of left foot with other specified severity; L97.518 Non-pressure chronic ulcer of other part of right foot with other specified severity; E11.621 Type 2 diabetes mellitus with foot ulcer; E11.628 Type 2 diabetes mellitus with other skin complications; L03.032 Cellulitis of left toe; L03.031 Cellulitis of right toe; E11.65 Type 2 diabetes mellitus with hyperglycemia; E11.40 Type 2 diabetes mellitus with diabetic neuropathy, unspecified; I10 Essential (primary) hypertension; B18.2 Chronic viral hepatitis C; E78.5 Hyperlipidemia, unspecified; J45.909 Unspecified asthma, uncomplicated; B95.1 Streptococcus, group B, as the cause of diseases classified elsewhere; B96.1 Klebsiella pneumoniae [K. pneumoniae] as the cause of diseases classified elsewhere; F17.210 Nicotine dependence, cigarettes, uncomplicated; Z79.4 Long term (current) use of insulin; Z89.421 Acquired absence of other right toe(s); Z20.822 Contact with and (suspected) exposure to COVID-19
CPT/HCPCS: A9579; J1650

== ENCOUNTER 2021-01-21 00:18 | Emergency (ER) | payer MEDICARE, MEDICAID ==
[~2021-01-21] VITALS: Ht 190.5 cm; Wt 83.0 kg
[~2021-01-21 00:18] MED LIST changes: +CRESTOR20 MG PO; +EZETIMIBE10 MG PO; +HUMALOG 751000 UNITS SC; +JARDIANCE25 MG PO; +METFORMIN HCL1000 M1 PO; +NORTRIPTYLIN25 MG PO; +PLAVIX75 MG PO
[2021-01-21] MEDS ORDERED: BACTRIM DS1 TAB PO (00:59)
[2021-01-21 01:20] VITALS: BP 141/79
== END 2021-01-21 01:20 | disposition home or self-care (01) ==
LOC: ED 00:18
PROC: 0H97XZZ Drainage of Abdomen Skin, External Approach (ICD-10-PCS; principal; 2021-01-21)
DX: L02.211 Cutaneous abscess of abdominal wall (principal); I10 Essential (primary) hypertension; E11.9 Type 2 diabetes mellitus without complications; B19.20 Unspecified viral hepatitis C without hepatic coma; J45.909 Unspecified asthma, uncomplicated; F17.200 Nicotine dependence, unspecified, uncomplicated; Z79.84 Long term (current) use of oral hypoglycemic drugs

== ENCOUNTER 2021-10-06 10:07 | Emergency (ER) | payer MEDICARE, MEDICAID ==
[2021-10-06] VITALS (21 sets, daily range): BP systolic 128–157; BP diastolic 69–86
[~2021-10-06] VITALS: Ht 190.5 cm; Wt 74.0 kg
[2021-10-06 11:30] LABS: HEMATOCRIT 44.2 % (39.0-50.0); HEMOGLOBIN 14.6 g/dl (14.0-18.0); IMMATURE GRANULOCYTES 0.7 % (0.0-5.0); MEAN CELL VOLUME 88.9 fL CALC (80.0-100.0); MEAN CORPUSCULAR HGB 29.4 pG CALC (26.0-32.0); NEUT# 18.06 thou/uL (1.82-7.42); RED BLOOD COUNT 4.97 mill/uL (4.70-6.10); RED CELL DISTRI WIDTH 14.4 % (11.5-15.5)
[2021-10-06 11:36] LABS: ALBUMIN 3.6 g/dL (3.2-5.0); ALKALINE PHOSPHATASE 149 u/l (38-126); BUN 28 mg/dL (9-20); BUN/CREATININE RATIO 23 (12-20 (CALC)); CHLORIDE 94 mmol/l (95-108); CREATININE 1.2 mg/dL (0.7-1.3); GFR > 60 ML/MIN (>=60 (CALC)); GFR FOR AFR.AMER. > 60 ML/MIN (>=60 (CALC)); POTASSIUM 3.9 mmol/l (3.5-5.1); SGOT/AST 35 u/l (17-59); SODIUM 131 mmol/l (137-146)
[2021-10-06 11:37] LABS: ACT PARTIAL THROMBO TIME 33.7 SECONDS (20.0-32.5); INTERNATIONAL NORMALIZED RATIO 1.1 RATIO (0.7-1.3); PROTHROMBIN TIME 11.4 SECONDS (9.0-12.5)
[2021-10-06 11:40] LABS: ANION GAP 28 (6-22 (CALC)); BILIRUBIN, TOTAL 0.9 mg/dL (0.0-1.4); CARBON DIOXIDE 13 mmol/l (22-30)
== END 2021-10-06 15:53 | disposition short-term general hospital (02) ==
LOC: ED 10:07
DX: A41.9 Sepsis, unspecified organism (principal); E11.52 Type 2 diabetes mellitus with diabetic peripheral angiopathy with gangrene; A48.0 Gas gangrene; E11.10 Type 2 diabetes mellitus with ketoacidosis without coma; I10 Essential (primary) hypertension; B19.20 Unspecified viral hepatitis C without hepatic coma; J45.909 Unspecified asthma, uncomplicated; F17.200 Nicotine dependence, unspecified, uncomplicated; Z79.4 Long term (current) use of insulin

== ENCOUNTER → 2022-07-15 | Emergency (ER) | payer MEDICARE, MEDICAID ==
[~2022-07-15] VITALS: Ht 190.5 cm; Wt 58.0 kg
[~2022-07-15] MED LIST changes: +LEVEMIR100 UNIT; +PROTONIX20 M1 PO
[2022-07-15 14:07] VITALS: BP 116/78
[2022-07-15 14:23] VITALS: BP 116/78
[2022-07-15 14:30] VITALS: BP 139/85
== END | disposition home or self-care (01) ==
LOC: ED 14:00
DX: R06.6 Hiccough (principal); I10 Essential (primary) hypertension; E11.9 Type 2 diabetes mellitus without complications; K21.9 Gastro-esophageal reflux disease without esophagitis; J45.909 Unspecified asthma, uncomplicated; B19.20 Unspecified viral hepatitis C without hepatic coma; F17.200 Nicotine dependence, unspecified, uncomplicated; Z79.4 Long term (current) use of insulin

== ENCOUNTER 2022-08-06 08:31 | Inpatient (IN) | payer MEDICARE, MEDICAID ==
[~2022-08-06] VITALS: Ht 190.5 cm; Wt 66.1 kg
[2022-08-06] VITALS (8 sets, daily range): BP systolic 107–156; BP diastolic 61–88
--- NOTE | 2022-08-06 08:31 | NUR ---
PATIENT TO ROOM 12 VIA PERSON WC. BEDSIDE TRIAGE COMPLETED
--- NOTE | 2022-08-06 09:00 | NUR ---
Reassessment of patient completed. No distress noted. ONE TO ONE CARE
[2022-08-06 09:22] LABS: URINE BILIRUBIN - DIPSTICK NEGATIVE (NEGATIVE); URINE BLOOD DIPSTICK SMALL (NEGATIVE); URINE COLOR YELLOW; URINE GLUCOSE - DIPSTICK >=1000 mg/dL (NEGATIVE); URINE KETONE NEGATIVE (NEGATIVE); URINE PH 5.5 (4.5-8.0); URINE PROTEIN - DIPSTICK NEGATIVE (NEG-TRACE); URINE SPECIFIC GRAVITY <=1.005; URINE UROBILINOGEN - DIPSTICK 0.2 E.U./dL (0.2)
[2022-08-06 09:25] LABS: URINE LEUK ESTERASE SMALL (NEGATIVE); URINE NITRITE - DIPSTICK NEGATIVE (Negative)
[2022-08-06 09:26] LABS: EOS% 0.1 % (0-8); IMMATURE GRANULOCYTES 0.6 % (0.0-5.0); LYMPH% 14.7 % (15-41); MEAN CORPUSCULAR HGB 24.9 pG CALC (26.0-32.0); MEAN CORPUSCULAR HGB CONC 31.5 g/dL CAL (32.0-36.0); MONO% 7.1 % (2-13); NEUT# 9.57 thou/uL (1.82-7.42); NEUT% 77.5 % (42-76); RED BLOOD COUNT 4.7 mill/uL (4.70-6.10); RED CELL DISTRI WIDTH 15.9 % (11.5-15.5)
[2022-08-06 09:30] LABS: URINE BACTERIA MANY hpf; URINE WBC 20-50 WBC/hpf (0-5)
[2022-08-06 09:31] LABS: URINE YEAST MODERATE hpf
[2022-08-06 09:41] LABS: ALKALINE PHOSPHATASE 186 u/l (38-126); BILIRUBIN, TOTAL 0.2 mg/dL (0.2-1.3); BUN 31 mg/dL (9-20); BUN/CREATININE RATIO 34 (12-20 (CALC)); CARBON DIOXIDE 27 mmol/l (22-30); CREATININE 0.9 mg/dL (0.7-1.3); GFR FOR AFR.AMER. > 60 ML/MIN (>=60 (CALC)); GFR OTHER RACES > 60 ML/MIN (>=60 (CALC)); POTASSIUM 4.5 mmol/l (3.5-5.1); SGOT/AST 22 u/l (17-59); TOTAL PROTEIN 7.9 g/dL (6.3-8.2)
[2022-08-06 09:51] LABS: HEMATOCRIT 37.1 % (39.0-50.0); HEMOGLOBIN 11.7 g/dl (14.0-18.0); MEAN CELL VOLUME 78.9 fL CALC (80.0-100.0)
[2022-08-06 10:02] LABS: ALBUMIN 3.3 g/dL (3.2-5.0); ANION GAP 15 (6-22 (CALC)); CHLORIDE 87 mmol/l (95-108); SODIUM 124 mmol/l (137-146)
--- NOTE | 2022-08-06 10:30 | NUR ---
Reassessment of patient completed. No distress noted.
--- NOTE | 2022-08-06 11:02 | NUR ---
850 ML URINE OUTPUT EMPTIED FROM [facility]. LIGHTS DIMMED FOR COMFORT. Reassessment of patient completed. No distress noted.
[2022-08-06] MEDS ORDERED: GABAPENTIN100 MG PO (12:10)
[2022-08-06] MEDS ORDERED: NORTRIPTYLIN25 MG PO (12:10)
[2022-08-06] MEDS ORDERED: CLOPIDOGREL75 MG PO (12:10)
[2022-08-06] MEDS ORDERED: LISINOPRIL5 MG PO (12:11)
[2022-08-06] MEDS ORDERED: PROTONIX20 MG PO (12:13)
[2022-08-06] MEDS ORDERED: ROSUVASTATIN CA20 MG (12:13)
[2022-08-06] MEDS ORDERED: LEVEMIR FL100 UNIT/M SC (12:14)
[2022-08-06] MEDS ORDERED: SIMVASTATIN5 MG PO (12:14)
--- NOTE | 2022-08-06 12:15 | NUR ---
RECONCILED PTS MEDICATIONS. PATIENT REQUESTING WATER, PT PROVIDED WATER
--- NOTE | 2022-08-06 13:30 | NUR ---
Reassessment of patient completed. No distress noted.
--- NOTE | 2022-08-06 14:27 | NUR ---
PATIENT ARRIVED TO UNIT AT 1427. ASSESSEMENT DONE. 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 PATIENT HAD MULTIPLE WOUND WHICH NURSE TOOK PICTURES AND DOCTUMENT THEM. LAST BM WAS 08/04. PATIENT IS ALERT AND ORIENTATED. PIV WORKING PROPERLY. SHOWED PATIENT HOW TO USE CALL LIGHT AND HOW TO USE THE TV BUTTONS. WILL CONTINUE TO MONITOR.
--- NOTE | 2022-08-06 14:30 | NUR ---
2000 ML URINE OUTPUT EMPTIED FROM [facility]
--- NOTE | 2022-08-06 14:37 | NUR ---
PT TRANSFERRED VIA HIS MOTORIZED WHEELCHAIR. ASSIST X1 TO TRANSFER. BEDSIDE REPORT GIVEN TO RAUL
--- NOTE | 2022-08-06 15:59 | NUR ---
pt glucose was 505 @1530, nurse merle notified.
--- NOTE | 2022-08-06 16:42 | NUR ---
S: ANN SOLIS is a 52 M who presents with SEPSIS. He has a history of CELLULITIS . All medications in patient's chart were reviewed. O: VS: BP <136/77>, P<110>, RR<21>,T<98.9> W <65kg>, HT<75IN>, Scr=<0.9>,CrCl= <86ml/min> A: Blood culture <is pending Urine culture <is pending P: Patient is on CEFEPIME 2G Q12H. Vancomycin ordered for pharmacy to dose. Start Vancomycin 1G IV Q12H. Vancomycin trough is drawn before the 4th dose on 08/07/22 @2130. Vancomycin goal trough is between <15-20 mcg/ml>. Pharmacy will follow and or advise on antibiotics use as needed. LANA FRAGOSO PHARMD
[2022-08-06] MEDS ORDERED: JANUVIA50 MG PO (17:49)
--- NOTE | 2022-08-06 19:50 | NUR ---
Patient resting quietly in bed. Shift assessent completed. Patient alert and oriented. Denies pain or discomfort. Safety measures in place.
--- NOTE | 2022-08-06 21:46 | NUR ---
pt had a glucose of 397 @2101. Nurse Notfied.
--- NOTE | 2022-08-07 00:12 | NUR ---
Patient resting in bed with eyes closed. Easily aroused. Alert and oriented x3. Denies pain or discomfort. No IV related complications. Mark draining clear, cloudy urine. Safety measures in place. Call light within reach.
[2022-08-07 02:45] VITALS: BP 94/58
[2022-08-07 05:46] LABS: MAGNESIUM 1.8 mg/dL (1.6-2.3)
[2022-08-07 05:47] VITALS: BP 116/64
[2022-08-07 05:52] LABS: CHOLESTEROL HDL RATIO 7.3 (<4.4 (CALC))
--- NOTE | 2022-08-07 06:39 | NUR ---
Patient easily aroused when medication given. Denies pain or discomfort at this time. Safety measures remain in place. Call light within reach.
--- NOTE | 2022-08-07 09:00 | NUR ---
MILLER FIRST INFORMED NURSE THAT PATIENT WAS VOMITING. NURSE PROVIDED ZOFRAN IV TO PATIENT. BEFORE THE ZOFRAN PATIENT HAD VOMITED 3 TIMES. WILL CONTINUE TO MONITOR.
[2022-08-07 09:27] VITALS: BP 111/68
--- NOTE | 2022-08-07 10:39 | NUR ---
pt glucose was 328 @1030
--- NOTE | 2022-08-07 12:00 | NUR ---
MRI OF THE FOOT IS POSTPONE DUE TO PATIENT VOMITING AT THIS TIME.
--- NOTE | 2022-08-07 13:00 | NUR ---
PATIENT IS STILL VOMITING AFTER BENNETT NOTIFIED CUSTOMER EXPERIENCE INTERN. GAVE REGLAN THAT WAS ORDERED PATIENT WAS ACTIVELY VOMITING WHILE NURSE WAS GIVEN THE MEDICATION TO HIM. WILL CONTINUE TO MONITOR.
--- NOTE | 2022-08-07 14:20 | NUR ---
NURSE JUST CHECKED ON PATIENT HE IS SLEEPING. WILL CONTINUE TO MONITOR.
[2022-08-07 15:59] VITALS: BP 100/60
[2022-08-07 18:10] VITALS: BP 118/68
--- NOTE | 2022-08-07 20:15 | NUR ---
Patient assessment completed. Patient sleepy but easily aroused. Denies pain or discomfort. Voices no concern at this time. Patient encouraged to reposition to off-load pressure from bottom. Verbalizes understanding of this teaching. Call light and personal items within reach.
--- NOTE | 2022-08-07 23:29 | NUR ---
Patient made aware of vanco trough results and medicaion administered per order. C/o back pain. Assisted to reposition and medicated for pain. Call light within reach. Mark draining yamila urine. Safety measures in place.
[2022-08-07 23:31] VITALS: BP 113/59
[2022-08-08] VITALS (9 sets, daily range): BP systolic 97–120; BP diastolic 51–64
[2022-08-08 05:31] LABS: BASO% 0.3 % (0-3); EOS% 0.3 % (0-8); HEMATOCRIT 32.5 % (39.0-50.0); HEMOGLOBIN 9.8 g/dl (14.0-18.0); IMMATURE GRANULOCYTES 0.9 % (0.0-5.0); LYMPH% 35.3 % (15-41); MEAN CELL VOLUME 80.6 fL CALC (80.0-100.0); MEAN CORPUSCULAR HGB 24.3 pG CALC (26.0-32.0); MEAN CORPUSCULAR HGB CONC 30.2 g/dL CAL (32.0-36.0); MONO% 7.5 % (2-13); NEUT# 4.29 thou/uL (1.82-7.42); NEUT% 55.7 % (42-76); RED BLOOD COUNT 4.03 mill/uL (4.70-6.10); RED CELL DISTRI WIDTH 16.3 % (11.5-15.5)
[2022-08-08 05:53] LABS: ALBUMIN 2.7 g/dL (3.2-5.0); ALKALINE PHOSPHATASE 123 u/l (38-126); BUN 23 mg/dL (9-20); BUN/CREATININE RATIO 27 (12-20 (CALC)); CHLORIDE 95 mmol/l (95-108); CREATININE 0.8 mg/dL (0.7-1.3); GFR FOR AFR.AMER. > 60 ML/MIN (>=60 (CALC)); GFR OTHER RACES > 60 ML/MIN (>=60 (CALC)); MAGNESIUM 1.9 mg/dL (1.6-2.3); SGOT/AST 21 u/l (17-59); TOTAL PROTEIN 6.8 g/dL (6.3-8.2)
[2022-08-08 05:54] LABS: ANION GAP 3 (6-22 (CALC)); CARBON DIOXIDE 38 mmol/l (22-30); POTASSIUM 3.4 mmol/l (3.5-5.1); SODIUM 133 mmol/l (137-146)
--- NOTE | 2022-08-08 07:00 | NUR ---
Receive report from Sapna DONIS.
--- NOTE | 2022-08-08 08:00 | NUR ---
Alert and oriented patient x3. Assessment head-to-toe complete. Patient does not refer pain at the time of this note. Pt connected to telemetry. Good heart and respiratory rhythm at the time of this note. Patient is educated about medications, nursing plan and for today. Patient refers to understanding. Safety and fall precautions in place. Call light within in reach.
--- NOTE | 2022-08-08 12:30 | NUR ---
Patient resting in bed. Stable at the time of this note. Safety and fall precautions in place. Safety and fall precautions in place. Call light within in reach.
--- NOTE | 2022-08-08 14:27 | NUR ---
PATIENT RECEIVING VANCOMYCIN 1G IV Q12H. VANCOMYCIN TROUGH ON 08/07/22 @2130 IS 13 ug/dL GOAL TROUGH FOR CELLULITIS IS 1-15 ug/dL CONTINUE VANCOMYCIN 1G IV Q12H. NEXT TROUGH TO BE DRAWN 08/09/22 @ 0930
--- NOTE | 2022-08-08 20:00 | NUR ---
RECEIVED REPORT FROM DAYSHIFT NURSE. PT IS A/OX3, LAYING IN BED FOWLERS. PT COMPLAINED OF IV HURTING THEM. UPON INSPECTION IV IS INFILTRATED. REMOVED IV AND STARTED A NEW ONE 22 IN LFA WITH NS RUNNING PER EMAR. BLACK AND BLUE BLISTER NOTED ON RT MIDDLE FINGER. RT LEG BELOW THE KNEE AMPUTEE NOTED. PT BUTTOCKS AREA IS RED, OFFERED BARRIER CREAM. PT DENIES ANY OTHER PAIN AT THIS TIME. CALL LIGHT WITHIN REACH AND SAFETY PREFCAUTIONS IN PLACE.
--- NOTE | 2022-08-09 | NUR ---
PT LAYING IN BED ON RT SIDE, SLEEPING. NO S/S OF DISTRESS. CALL LIGHT WITHIN REACH AND SAFETY PRECAUTIONS IN PLACE.
[2022-08-09 03:16] VITALS: BP 123/59
[2022-08-09 04:31] LABS: HEMOGLOBIN 9.3 g/dl (14.0-18.0); MEAN CELL VOLUME 80.9 fL CALC (80.0-100.0); MEAN CORPUSCULAR HGB 24.3 pG CALC (26.0-32.0); RED BLOOD COUNT 3.83 mill/uL (4.70-6.10); RED CELL DISTRI WIDTH 16.4 % (11.5-15.5)
[2022-08-09 04:44] LABS: ALBUMIN 2.7 g/dL (3.2-5.0); ALKALINE PHOSPHATASE 82 u/l (38-126); ANION GAP 7 (6-22 (CALC)); BUN 15 mg/dL (9-20); BUN/CREATININE RATIO 21 (12-20 (CALC)); CHLORIDE 100 mmol/l (95-108); CREATININE 0.7 mg/dL (0.7-1.3); GFR FOR AFR.AMER. > 60 ML/MIN (>=60 (CALC)); GFR OTHER RACES > 60 ML/MIN (>=60 (CALC)); MAGNESIUM 1.6 mg/dL (1.6-2.3); POTASSIUM 3.6 mmol/l (3.5-5.1); SGOT/AST 22 u/l (17-59); SODIUM 132 mmol/l (137-146); TOTAL PROTEIN 6.5 g/dL (6.3-8.2)
--- NOTE | 2022-08-09 04:46 | NUR ---
PT LAYING IN BED ON PHONE. DENIES ANY PAIN AT THIS TIME BUT REQUESTED MILK AND CRACKERS. FLUIDS AND SNACK OFFERED TO PT. CALL LIGHT WITHIN REACH AND SAFETY PRECAUTIONS IN PLACE.
[2022-08-09 04:51] LABS: CARBON DIOXIDE 29 mmol/l (22-30)
[2022-08-09 05:24] VITALS: BP 135/64
--- NOTE | 2022-08-09 08:00 | NUR ---
GOT REPORT FROM DIELECTRIC MACHINE OPERATOR NURSE. PATIENT ASSESSED. AOX3. PATIENT IN BED WATCHING TV. NO SXS OF DISTRESS. FALL PRECAUTIONS IN PLACE. ADVISED TO CALL IF NEEDING ANYTHING. PATIENT DOES HAVE TABLE AND CALL LIGHT WITH IN REACH.
--- NOTE | 2022-08-09 12:00 | NUR ---
PATIENT IN BED RESTING ON PHONE WITH FAMILY. NO SXS OF DISTRESS. ADVISED TO CALL IF NEEDING ANYTHING. CONSENTS SIGNED FOR BEDSIDE I&D AND FOR PROCEDURE TOMORROW.
--- NOTE | 2022-08-09 13:03 | NUR ---
S: ANN SOLIS is a 52 M who presents with cellulitis. He has a history of T2DM, HCV, HLD, HTN, and neuropathy. All medications in patient's chart were reviewed. O: VS: BP 135/64, P 102, RR 18,T 98.5 W 66.1 kg, HT 75 in, Scr= .7,CrCl= 112.8 ml/min> Trough on 08/09/22: 13 A: Blood culture from 08/06/22 shows preliminary results of no growth after 48 hours incubation. Urine culture from 08/06/22 shows growth of K. pneumoniae which is sensitive to cefepime. Wound culture of right middle finder is pending results. Vancomycin trough is within therapeutic goal of 10-15. P: Patient is on cefepime 2g IV q12hrs. Vancomycin ordered for pharmacy to dose. Continue Vancomycin 1g IV Q12H. Vancomycin trough is drawn before the dose on 08/11/22 0930. Vancomycin goal trough is between 10-15 mcg/ml. Pharmacy will follow and or advise on antibiotics use as needed.
[2022-08-09 14:00] VITALS: BP 131/61
--- NOTE | 2022-08-09 16:00 | NUR ---
PATIENT AWAKE WATCHING TV. EATING SNACKS. ENCOURAGE PATIENT TO WATCH SNACK INTAKE BLOOD SUGARS ARE ELEVATED. PATIENT AGREED. FALL PRECAUTIONS STILL IN PLACE. ADVISE TO CALL IF NEEDING ANYTHING.
--- NOTE | 2022-08-09 20:00 | NUR ---
RECEIVED REPORT FROM DAYSNYFT NURSE. PT NOTED LAYING SUPINE IN BED LISTENING TO MUSIC. PT IS A/OX3. DSG NOTED ON PT RT POINTER FINGER. PT DENIES ANY PAIN AT THIS TIME. EDUCATED PT ON MIDNIGHT NPO STATUS PREP FOR OPERATION TMRW. PT INDICATED UNDERSTANDING. EDUCATED ON PLAN OF CARE FOR TONIGHT. CALL LIGHT WITHIN REACH AND SAFETY PRECAUTIONS IN PLACE.
[2022-08-09 23:18] VITALS: BP 118/55
--- NOTE | 2022-08-09 23:52 | NUR ---
DRINKS REMOVED FROM PT ROOM. PT EDUCATED ON NPO STATUS OF MIDNIGHT. PT LAYING IN BED ON PHONE. DENIES ANY PAIN AT THIS TIME. CALL LIGHT WITHIN REACH AND SAFETY PRECAUTIONS IN PLACE.
[2022-08-10] VITALS (11 sets, daily range): BP systolic 109–138; BP diastolic 57–66
--- NOTE | 2022-08-10 04:00 | NUR ---
PT LAYING ON RT SIDE SLEEPING. NO S/S OF DISTRESS. CALL LIGHT WITHIN REACH AND SAFETY PRECAUTIONS IN PLACE. NPO STICKER AT DOOR.
[2022-08-10 06:59] LABS: HEMATOCRIT 33.1 % (39.0-50.0); HEMOGLOBIN 10.1 g/dl (14.0-18.0); MEAN CELL VOLUME 80.1 fL CALC (80.0-100.0); MEAN CORPUSCULAR HGB 24.5 pG CALC (26.0-32.0); MEAN CORPUSCULAR HGB CONC 30.5 g/dL CAL (32.0-36.0); RED BLOOD COUNT 4.13 mill/uL (4.70-6.10); RED CELL DISTRI WIDTH 16.4 % (11.5-15.5)
[2022-08-10 07:10] LABS: ALBUMIN 2.9 g/dL (3.2-5.0); ALKALINE PHOSPHATASE 90 u/l (38-126); ANION GAP 7 (6-22 (CALC)); BUN 13 mg/dL (9-20); BUN/CREATININE RATIO 22 (12-20 (CALC)); CARBON DIOXIDE 29 mmol/l (22-30); CHLORIDE 104 mmol/l (95-108); CREATININE 0.6 mg/dL (0.7-1.3); GFR FOR AFR.AMER. > 60 ML/MIN (>=60 (CALC)); GFR OTHER RACES > 60 ML/MIN (>=60 (CALC)); MAGNESIUM 1.6 mg/dL (1.6-2.3); SGOT/AST 62 u/l (17-59); SODIUM 137 mmol/l (137-146); TOTAL PROTEIN 7.2 g/dL (6.3-8.2)
--- NOTE | 2022-08-10 07:54 | NUR ---
PT RESTING COMFORTABLY. VITAL SIGNS STABLE. PT NPO. AWAITING SURGICAL PROCEDURE.
--- NOTE | 2022-08-10 10:33 | NUR ---
PT OFF UNIT TO OR
--- NOTE | 2022-08-10 13:11 | NUR ---
PT BACK FROM OR.
--- NOTE | 2022-08-10 15:50 | NUR ---
PT RESTING COMFORTABLY. VITAL SIGNS STABLE. NO NEEDS AT THIS TIME.
[2022-08-11] VITALS (8 sets, daily range): BP systolic 112–145; BP diastolic 57–76
[2022-08-11 05:43] LABS: HEMATOCRIT 30.3 % (39.0-50.0); HEMOGLOBIN 9.2 g/dl (14.0-18.0); MEAN CELL VOLUME 81.2 fL CALC (80.0-100.0); MEAN CORPUSCULAR HGB 24.7 pG CALC (26.0-32.0); MEAN CORPUSCULAR HGB CONC 30.4 g/dL CAL (32.0-36.0); RED BLOOD COUNT 3.73 mill/uL (4.70-6.10); RED CELL DISTRI WIDTH 16.9 % (11.5-15.5)
[2022-08-11 05:52] LABS: ALBUMIN 2.5 g/dL (3.2-5.0); ALKALINE PHOSPHATASE 88 u/l (38-126); ANION GAP 8 (6-22 (CALC)); BUN 16 mg/dL (9-20); BUN/CREATININE RATIO 24 (12-20 (CALC)); CARBON DIOXIDE 25 mmol/l (22-30); CHLORIDE 104 mmol/l (95-108); CREATININE 0.7 mg/dL (0.7-1.3); GFR FOR AFR.AMER. > 60 ML/MIN (>=60 (CALC)); GFR OTHER RACES > 60 ML/MIN (>=60 (CALC)); MAGNESIUM 1.5 mg/dL (1.6-2.3); SGOT/AST 28 u/l (17-59); SODIUM 133 mmol/l (137-146); TOTAL PROTEIN 6.1 g/dL (6.3-8.2)
[2022-08-11 06:06] LABS: POTASSIUM 4.1 mmol/l (3.5-5.1)
--- NOTE | 2022-08-11 08:00 | NUR ---
REPORT RECEIVED FROM NIGHT NURSE. PT RESTING IN BED SEMI KENNY; ALERT AND ORIENTED X 3. C/O PAIN TO LEFT FOOT 11/03; RENETTA WRAP DRESSING TO LEFT FOOT IS CDI; EXTREMITIY IS ELEVATED ON PILLOW. RESPIRATIONS EVEN AND UNLABORED ON ROOM AIR. TELE IN PLACE. IV SITE APPEARS HEALTHY; NORMAL SALINE INFUSING AT 100 ML/HR. SWANSON DRAINING CLEAR, YELLOW URINE TO GRAVITY. PLAN OF CARE REVIEWED. PT ENCOURAGED TO VERBALIZE CONCERNS; STATES UNDERSTANDING. SAFETY MEASURES IN PLACE; CALL LIGHT WITHIN REACH.
--- NOTE | 2022-08-11 10:15 | NUR ---
MORPHINE GIVEN FOR 8/10 PAIN TO LEFT FOOT. VANCO INFUSING AT THIS TIME AFTER VANCO TROUGH COMPLETED. PT HAS NO OTHER REQUESTS OR CONCERNS AT THIS TIME.
--- NOTE | 2022-08-11 11:15 | NUR ---
REPORT RECEIVED FROM Xuan PUENTES RN AT BEDSIDE. CARE OF PT ASSUMED AT THIS TIME. PT RESTING IN BED, APPEARS COMFORTABLE AND IN NO DISTRESS. DENIES NEEDS AT THIS TIME. CALL OSMAN WITHIN REACH, AGREES TO CALL PRN. DR. OSWALD ON UNIT, DISCUSSED FURTHER PAIN MANAGMENT AND INCREASE IN LEVEMIR DOSE PT HAS BEEN TRENDING HYPERGLYCEMIC AND STATES HE TAKES 45 UNITS OF LEVEMIR BID. NEW ORDERS PENDING.
--- NOTE | 2022-08-11 16:00 | NUR ---
PT RESTING IN BED WITH EYES CLOSED. BREATHING EVEN AND UNLABORED. NO DISTRESS NOTED. FALL/SAFTEY PRECAUTIONIN PLACE. CALL LIGHT WITHIN REACH.
--- NOTE | 2022-08-11 22:50 | NUR ---
PT IN BED WATCHING TV. NO S/S OF DISTRESS NOTED. ASSESMENT COMPLETED. CALL LIGHT IN REACH AND BED IN LOWEST POSITION.
[2022-08-12] VITALS (9 sets, daily range): BP systolic 112–131; BP diastolic 57–71
--- NOTE | 2022-08-12 00:45 | NUR ---
PT IN BED RESTING WITH EYES CLOSED BREATHIMNG EVEN AND UNLABORED. NO S/S OF DISTRESS NOTED. CALL LIGHT IN REACH ADN BED IN LOWEST POSITION.
--- NOTE | 2022-08-12 03:22 | NUR ---
PT IN BED AWAKE. PT REPORT PAIN 01/03. KS MEDICATED PER JUL. NO S/S OF DISTRESS NOTED. CALL LIGHT IN REACH AND BED IN LOWEST POSITION.
--- NOTE | 2022-08-12 04:00 | NUR ---
IV ALARM WENT ON. DOWNSTREAM OCCUSION ON PUMP. I ATTEMPT TO FLUSH BUT I WAS UNABLE TO FLUSH THERE WAS RESISTANCE. NEW IV START WITHOUT COMPLICATION TO LEFT HAND 20G. CALL LIGHT IN REACH AND BED IN LOWEST POSITION.
--- NOTE | 2022-08-12 08:00 | NUR ---
PT IN BED AWAKE AND ALERT. IV SITE TO LEFT WRIST INTACT EITH NS @ 10 ML/HR. PT IS ON TELE WITH ALL LEADS ATTACHED. DRESSING TO LEFT FOOT CLEAN AND INTACT. SWANSON CATHINTACT DRAINING CLEAR, YELLOW URINE. PT HAS CALL LIGHT WITHIN REACH AND ALL SAFETY MEASURES IN PLACE.
--- NOTE | 2022-08-12 12:00 | NUR ---
PT LAYING IN BED WATCHING TV. AWAKE AND ALERT. C/O PAIN AT 8/10 ON PAIN SCALE TO LEFT FOOT, PT MEDICATED WITH NEEDED MEDICATION AT ORDERED, WILL REASSESS.
--- NOTE | 2022-08-12 16:00 | NUR ---
PT IN BED RESTING WITH EYES OPEN. PT ALERT AND OREIENTED, NO CHANGE IN STATUS AT THIS TIME.
--- NOTE | 2022-08-12 22:00 | NUR ---
PT IN BED WATCHING TV. NO S/S OF DRISTRESS NOTED. BREATHING EVEN AND UNLABORED. ASSESMENT COMPLETED. PT REPORT PAIN TO LEFT FOOT. PT MEDICATED PER MAR. NO NEEDS OR CONCERN VOICE AT THIS TIME. CALL LIGHT IN REACH AND BED IN LOWEST POSITION.
[2022-08-13] VITALS (7 sets, daily range): BP systolic 108–136; BP diastolic 57–77
--- NOTE | 2022-08-13 00:25 | NUR ---
PT IN BED AWAKE WATCHING TV. DENIES PAIN OR DISCOMFORT. CALL LIGHT IN REACH AND BED IN LOWEST POSITION.
--- NOTE | 2022-08-13 04:44 | NUR ---
PT IN BED AWAKE WATCHING TN NO S/S OF DISYTRESS NOTED. CALL LIGHT IN REACH AND BED IN LOWEST POSITION.
--- NOTE | 2022-08-13 08:00 | NUR ---
SHIFT CHANGE REPORT, PT AWAKE ALERT AND ORIENTED RESTING IN BED, C/O LEFT FOOT PAIN @ 7/10, SURGICAL DRESSING TO LEFT FOOT CDI, IVF INFUSING, TELE MONITOR IN PLACE, CALL OSMAN IN REACH AND BED LOCKED IN LOWEST POSITION.
[2022-08-13 09:53] LABS: BASO% 0.5 % (0-3); EOS% 0.2 % (0-8); HEMATOCRIT 33.8 % (39.0-50.0); HEMOGLOBIN 10.2 g/dl (14.0-18.0); LYMPH% 46.2 % (15-41); MEAN CELL VOLUME 81.1 fL CALC (80.0-100.0); MEAN CORPUSCULAR HGB 24.5 pG CALC (26.0-32.0); MEAN CORPUSCULAR HGB CONC 30.2 g/dL CAL (32.0-36.0); MONO% 9.2 % (2-13); NEUT# 2.51 thou/uL (1.82-7.42); NEUT% 41.9 % (42-76); RED BLOOD COUNT 4.17 mill/uL (4.70-6.10); RED CELL DISTRI WIDTH 18.1 % (11.5-15.5)
[2022-08-13 10:21] LABS: ALBUMIN 2.9 g/dL (3.2-5.0); ALKALINE PHOSPHATASE 104 u/l (38-126); ANION GAP 9 (6-22 (CALC)); BUN 16 mg/dL (9-20); BUN/CREATININE RATIO 30 (12-20 (CALC)); CARBON DIOXIDE 25 mmol/l (22-30); CHLORIDE 103 mmol/l (95-108); CREATININE 0.6 mg/dL (0.7-1.3); GFR FOR AFR.AMER. > 60 ML/MIN (>=60 (CALC)); GFR OTHER RACES > 60 ML/MIN (>=60 (CALC)); MAGNESIUM 1.6 mg/dL (1.6-2.3); POTASSIUM 4.1 mmol/l (3.5-5.1); SGOT/AST 34 u/l (17-59); SODIUM 133 mmol/l (137-146)
[2022-08-13 10:22] LABS: BILIRUBIN, TOTAL 0.1 mg/dL (0.2-1.3)
--- NOTE | 2022-08-13 12:00 | NUR ---
CONDITION UNCHANGED, PAIN CONCERNS ADDRESSED.
--- NOTE | 2022-08-13 20:33 | NUR ---
Patient laying in bed. Alert and oriented and able to make needs known. C/o pain to left foot surguical site. Repositioned and medicated per MD order. Safety measures inplace. Snack provided per request. Call light and personal items within reach.
[2022-08-14 03:07] VITALS: BP 113/65
--- NOTE | 2022-08-14 03:40 | NUR ---
Patient in bed resting with eyes closed. Respirations trina and unlabored. No signs of discomfort or distress noted. Call light and personal items within reach.
[2022-08-14 05:41] VITALS: BP 114/65
[2022-08-14 05:41] LABS: BASO% 0.6 % (0-3); EOS% 0.5 % (0-8); HEMATOCRIT 31.7 % (39.0-50.0); HEMOGLOBIN 9.6 g/dl (14.0-18.0); IMMATURE GRANULOCYTES 1.9 % (0.0-5.0); LYMPH% 53.1 % (15-41); MEAN CELL VOLUME 82.1 fL CALC (80.0-100.0); MEAN CORPUSCULAR HGB 24.9 pG CALC (26.0-32.0); MEAN CORPUSCULAR HGB CONC 30.3 g/dL CAL (32.0-36.0); MONO% 9.7 % (2-13); NEUT# 2.19 thou/uL (1.82-7.42); NEUT% 34.2 % (42-76); RED BLOOD COUNT 3.86 mill/uL (4.70-6.10); RED CELL DISTRI WIDTH 18.3 % (11.5-15.5)
[2022-08-14 05:59] LABS: ALKALINE PHOSPHATASE 112 u/l (38-126); ANION GAP 9 (6-22 (CALC)); BILIRUBIN, TOTAL 0.1 mg/dL (0.2-1.3); BUN 19 mg/dL (9-20); BUN/CREATININE RATIO 28 (12-20 (CALC)); CARBON DIOXIDE 28 mmol/l (22-30); CHLORIDE 104 mmol/l (95-108); CREATININE 0.7 mg/dL (0.7-1.3); GFR FOR AFR.AMER. > 60 ML/MIN (>=60 (CALC)); GFR OTHER RACES > 60 ML/MIN (>=60 (CALC)); MAGNESIUM 1.7 mg/dL (1.6-2.3); POTASSIUM 3.4 mmol/l (3.5-5.1); SGOT/AST 36 u/l (17-59); SODIUM 138 mmol/l (137-146); TOTAL PROTEIN 7.1 g/dL (6.3-8.2)
--- NOTE | 2022-08-14 08:00 | NUR ---
PATIENT RESTING QUIETLY IN BED AT THIS TIME, NO C/O PAIN OR DISTRESS NOTED, IV FLUID RUNNING, SAFETY PRECAUTIONS IN PLACE, WILL ASSUME CARE.
[2022-08-14 10:05] VITALS: BP 120/73
[2022-08-14 14:56] VITALS: BP 129/67
--- NOTE | 2022-08-14 16:00 | NUR ---
PATIENT IN BED AWAKE ALERT AND ORIENTED, PATIENT TOLERATED MEDICATIONS DURING SHIFT, PATIENT C/O PAIN TO LEFT FOOT AND MEDICATED PER ORDER, VITAL SIGNS STABLE, AND SAFETY PRECAUTIONS IN PLACE.
[2022-08-14 18:30] VITALS: BP 143/71
--- NOTE | 2022-08-14 19:44 | NUR ---
Patient awake and alert. Has visitor at bedside. C/o pain to left foot. Repositioned for comfor per patient request. Patient educated on importance of repositioining for pain management and pressure ulcer prevention. Patient verbalizes understanding. Analgesic administered per MD order. Call light within reach.
[2022-08-14 23:29] VITALS: BP 120/65
--- NOTE | 2022-08-15 02:12 | NUR ---
Patient resting quietly in bed. Asked for snack. Educated on diabetic diet and maintaining blood glucose levels. Patient verbalizes understanding and snack provided per patient request. Denies pain or discomfort at this time. Call light within reach.
[2022-08-15 03:27] VITALS: BP 107/58
[2022-08-15 05:30] VITALS: BP 102/68
[2022-08-15 05:54] LABS: BASO% 0.8 % (0-3); EOS% 0.5 % (0-8); HEMATOCRIT 31.2 % (39.0-50.0); HEMOGLOBIN 9.3 g/dl (14.0-18.0); LYMPH% 54.4 % (15-41); MEAN CORPUSCULAR HGB 24.7 pG CALC (26.0-32.0); MEAN CORPUSCULAR HGB CONC 29.8 g/dL CAL (32.0-36.0); MONO% 10.7 % (2-13); NEUT# 2.07 thou/uL (1.82-7.42); NEUT% 31.6 % (42-76); RED BLOOD COUNT 3.76 mill/uL (4.70-6.10); RED CELL DISTRI WIDTH 18.6 % (11.5-15.5)
[2022-08-15 06:23] LABS: ALBUMIN 3.1 g/dL (3.2-5.0); ALKALINE PHOSPHATASE 103 u/l (38-126); BUN 20 mg/dL (9-20); BUN/CREATININE RATIO 30 (12-20 (CALC)); CARBON DIOXIDE 27 mmol/l (22-30); CHLORIDE 104 mmol/l (95-108); CREATININE 0.7 mg/dL (0.7-1.3); GFR FOR AFR.AMER. > 60 ML/MIN (>=60 (CALC)); GFR OTHER RACES > 60 ML/MIN (>=60 (CALC)); SGOT/AST 36 u/l (17-59); SODIUM 138 mmol/l (137-146); TOTAL PROTEIN 7.2 g/dL (6.3-8.2)
[2022-08-15 06:25] LABS: ANION GAP 11 (6-22 (CALC)); POTASSIUM 3.7 mmol/l (3.5-5.1)
--- NOTE | 2022-08-15 08:00 | NUR ---
GOT REPORT FROM RAIL OPERATOR NURSE. PATIENT IS IN BED LAYING DOWN LISTENING TO HIS PHONE ON HEADPHONES. PATIENT ASSESSED AND HELPED PUT PATIENT INTO A SITTING POSITION TO EAT BREAKFAST. SWANSON EMPTIED. REFILLED WATER AND PROVIDED 2% MILK FOR COFFEE. FALL PRECAUTIONS ARE IN PLACE. CALL LIGHT AND BEDSIDE TABLE WITH IN REACH.
--- NOTE | 2022-08-15 12:00 | NUR ---
PATIENT LAYING IN BED C/O PAIN IN HIS FOOT FROM STANDING UP ON IT. PAIN MEDICATION GIVEN. NO OTHER COMPLAINTS AT THIS TIME. ADVISED TO CALL IF NEEDING ANYTHING. PATIENT VERBALIZED UNDERSTANDING. FALL PRECAUTIONS ARE IN PLACE AND PATIENT DOES HAVE TABLE AND CALL LIGHT ARE WITH IN REACH.
[2022-08-15 14:33] VITALS: BP 135/66
--- NOTE | 2022-08-15 16:00 | NUR ---
PATIENT IN BED. DENIES ANY PAIN AT THIS TIME. PATIENT HAS CALL LIGHT AND TABLE WITH IN REACH. ADVISED TO CALL IF NEEDING ANYTHING. PATIENT VERBALIZED UNDERSTANDING.
[2022-08-15 17:22] VITALS: BP 122/64
--- NOTE | 2022-08-15 19:30 | NUR ---
Assessment completed. Patient is alert and oriented. Denies pain or discomfort. Resting quietly in bed with call light in place. Educated to reposition at least every 2 hours to offload weight from sacral wound. Verbalizes understanding. Bed in lowest position.
[2022-08-15 23:30] VITALS: BP 135/73
[2022-08-16 03:22] VITALS: BP 123/72
[2022-08-16 05:50] VITALS: BP 116/64
[2022-08-16 06:17] LABS: BASO% 0.7 % (0-3); EOS% 0.4 % (0-8); HEMATOCRIT 33.1 % (39.0-50.0); IMMATURE GRANULOCYTES 1.3 % (0.0-5.0); LYMPH% 56.8 % (15-41); MEAN CELL VOLUME 81.9 fL CALC (80.0-100.0); MEAN CORPUSCULAR HGB 24.8 pG CALC (26.0-32.0); MEAN CORPUSCULAR HGB CONC 30.2 g/dL CAL (32.0-36.0); MONO% 8.4 % (2-13); NEUT# 2.49 thou/uL (1.82-7.42); NEUT% 32.4 % (42-76); RED BLOOD COUNT 4.04 mill/uL (4.70-6.10)
[2022-08-16 06:40] LABS: ALBUMIN 3.3 g/dL (3.2-5.0); ALKALINE PHOSPHATASE 110 u/l (38-126); ANION GAP 10 (6-22 (CALC)); BUN 17 mg/dL (9-20); BUN/CREATININE RATIO 32 (12-20 (CALC)); CARBON DIOXIDE 29 mmol/l (22-30); CHLORIDE 104 mmol/l (95-108); CREATININE 0.6 mg/dL (0.7-1.3); GFR FOR AFR.AMER. > 60 ML/MIN (>=60 (CALC)); GFR OTHER RACES > 60 ML/MIN (>=60 (CALC)); POTASSIUM 3.7 mmol/l (3.5-5.1); SGOT/AST 42 u/l (17-59); SODIUM 140 mmol/l (137-146); TOTAL PROTEIN 7.4 g/dL (6.3-8.2)
--- NOTE | 2022-08-16 08:00 | NUR ---
GOT REPORT FROM WELDER HELPER NURSE. PATIENT ASSESSED. AOX4. PATIENT IN LAYING IN BED C/O THE BREAKFAST BEING "GROSS" BUT WHEN ASKED ABOUT GIVING SOMETHING ELSE HE REFUSED. PATIENT C/O PAIN IN HIS LEG, REQUESTED PAIN MEDICATION. MEDICATION GIVEN. FALL PRECAUTIONS STILL IN PLACE. CALL LIGHT AND BEDSIDE TABLE WITH IN REACH. ADVISED TO CALL IF NEEDING ANYTHING. PATIENT VERBALIZED UNDERSTANDING.
[2022-08-16 09:35] VITALS: BP 141/72
--- NOTE | 2022-08-16 12:00 | NUR ---
PATIENT IN BED C/O OF THE FOOD. HE SPOKE TO ADOLFO AT BEDSIDE. PATIENT STATES THAT HE IS FINE AT THE TIME JUST REQUEST DIET TWIST. DRINK GIVE TO PATIENT. NO FUTHER NEEDS AT THIS TIME.
[2022-08-16 14:18] VITALS: BP 121/60
--- NOTE | 2022-08-16 16:00 | NUR ---
PATIENT IS IN BED WATCHING TV AND ON CELLPHONE. NO SXS OF DISTRESS. ADVISED TO CALL IF NEEDING ANYTHING.
[2022-08-17] VITALS (7 sets, daily range): BP systolic 124–144; BP diastolic 65–76
[2022-08-17 05:40] LABS: BASO% 0.6 % (0-3); EOS% 0.4 % (0-8); HEMATOCRIT 34.8 % (39.0-50.0); HEMOGLOBIN 10.4 g/dl (14.0-18.0); LYMPH% 53.9 % (15-41); MEAN CELL VOLUME 83.5 fL CALC (80.0-100.0); MEAN CORPUSCULAR HGB 24.9 pG CALC (26.0-32.0); MEAN CORPUSCULAR HGB CONC 29.9 g/dL CAL (32.0-36.0); MONO% 9.3 % (2-13); NEUT# 2.49 thou/uL (1.82-7.42); NEUT% 34.8 % (42-76); RED BLOOD COUNT 4.17 mill/uL (4.70-6.10); RED CELL DISTRI WIDTH 19.3 % (11.5-15.5)
[2022-08-17 05:59] LABS: ALBUMIN 3.3 g/dL (3.2-5.0); ALKALINE PHOSPHATASE 126 u/l (38-126); BUN 20 mg/dL (9-20); BUN/CREATININE RATIO 26 (12-20 (CALC)); CARBON DIOXIDE 29 mmol/l (22-30); CHLORIDE 103 mmol/l (95-108); CREATININE 0.8 mg/dL (0.7-1.3); GFR FOR AFR.AMER. > 60 ML/MIN (>=60 (CALC)); GFR OTHER RACES > 60 ML/MIN (>=60 (CALC)); SGOT/AST 35 u/l (17-59); SODIUM 139 mmol/l (137-146); TOTAL PROTEIN 7.2 g/dL (6.3-8.2)
[2022-08-17 06:00] LABS: ANION GAP 12 (6-22 (CALC)); BILIRUBIN, TOTAL 0.1 mg/dL (0.2-1.3); POTASSIUM 4.5 mmol/l (3.5-5.1)
--- NOTE | 2022-08-17 07:59 | NUR ---
GOT REPORT FROM BORDER MACHINE OPERATOR NURSE. PATIENT ASSESSED. AOX4. PATIENT IS SLEEPY, WAS GIVEN PAIN MEDICATION. PATIENT DENIES NEEDING ANYTHING. PATIENT STATES THAT HE DID NOT SLEEP WELL LAST NIGHT. BED ALARM ON AND CALL LIGHT AND BED SIDE TABLE WITH IN REACH. ADVISED TO CALL IF NEEDING ANYTHING. PATIENT VERBALIZED UNDERSTANDING.
--- NOTE | 2022-08-17 12:00 | NUR ---
PATIENT IS LAYING IN BED LISTENING TO HIS PHONE. NO SXS OF DISTRESS. PATIENT HAS HIS CALL LIGHT AND BEDSIDE TABLE WITH IN REACH. ADVISED TO CALL IF NEEDING ANYTHING.
--- NOTE | 2022-08-17 16:00 | NUR ---
PATIENT IN BED SLEEPING. NO SXS OF DISTRESS. FALL PRECAUTIONS STILL IN PLACE. CALL LIGHT AND TABLE WITH IN REACH.
[2022-08-18 00:24] VITALS: BP 133/69
[2022-08-18 02:40] VITALS: BP 130/64
[2022-08-18 04:00] VITALS: BP 130/64
[2022-08-18 05:38] VITALS: BP 124/66
[2022-08-18 06:53] LABS: BASO% 0.8 % (0-3); EOS% 0.5 % (0-8); HEMATOCRIT 34.2 % (39.0-50.0); HEMOGLOBIN 10.1 g/dl (14.0-18.0); IMMATURE GRANULOCYTES 0.8 % (0.0-5.0); LYMPH% 56.4 % (15-41); MEAN CELL VOLUME 82.6 fL CALC (80.0-100.0); MEAN CORPUSCULAR HGB 24.4 pG CALC (26.0-32.0); MEAN CORPUSCULAR HGB CONC 29.5 g/dL CAL (32.0-36.0); MONO% 11.2 % (2-13); NEUT# 2.27 thou/uL (1.82-7.42); NEUT% 30.3 % (42-76); RED BLOOD COUNT 4.14 mill/uL (4.70-6.10); RED CELL DISTRI WIDTH 19.6 % (11.5-15.5)
[2022-08-18 07:04] LABS: ALBUMIN 3.3 g/dL (3.2-5.0); ALKALINE PHOSPHATASE 132 u/l (38-126); ANION GAP 12 (6-22 (CALC)); BILIRUBIN, TOTAL 0.1 mg/dL (0.2-1.3); BUN 20 mg/dL (9-20); BUN/CREATININE RATIO 32 (12-20 (CALC)); CARBON DIOXIDE 28 mmol/l (22-30); CHLORIDE 103 mmol/l (95-108); CREATININE 0.6 mg/dL (0.7-1.3); GFR FOR AFR.AMER. > 60 ML/MIN (>=60 (CALC)); GFR OTHER RACES > 60 ML/MIN (>=60 (CALC)); POTASSIUM 4.4 mmol/l (3.5-5.1); SGOT/AST 33 u/l (17-59); SODIUM 139 mmol/l (137-146); TOTAL PROTEIN 7.4 g/dL (6.3-8.2)
--- NOTE | 2022-08-18 07:51 | NUR ---
PT RESTING COMFORTABLY. VITAL SIGNS STABLE. PAIN MEDICINE GIVEN. NO OTHER NEEDS AT THIS TIME.
--- NOTE | 2022-08-18 12:01 | NUR ---
PT RESTING COMFORTABLY IN BED. VITAL SIGNS STABLE. NO NEEDS AT THIS TIME.
--- NOTE | 2022-08-18 15:56 | NUR ---
PT RESTING COMFORTABLY. VITAL SIGNS STABLE. NO NEEDS AT THIS TIME.
[2022-08-18 17:21] VITALS: BP 123/67
[2022-08-18 19:00] VITALS: BP 123/67
--- NOTE | 2022-08-18 20:34 | NUR ---
REPORT RECIEVED. PATIENT ALERT AND ORIENTED. WATCHING TV IN BED. DENIES PAIN AT THIS TIME. IV PATENT LH. SWANSON DRAINING CLEAR YELLOW URINE. BED LOCKED. CALL LIGHT IN REACH.
--- NOTE | 2022-08-19 00:24 | NUR ---
DSG DRY AND INTACT TO LEFT FOOT. GOOD CSM / REMAINING TOES. MEDICATED FOR PAIN NEEDED
--- NOTE | 2022-08-19 03:53 | NUR ---
PATIENT SLEEPING WELL. MEDICATED FOR PAIN WITH GOOD EFFECT. BED LOCKED. CALL LIGHT IN REACH.
[2022-08-19 04:00] VITALS: BP 120/70
[2022-08-19 04:24] VITALS: BP 120/70
[2022-08-19 07:36] VITALS: BP 120/66
--- NOTE | 2022-08-19 08:00 | NUR ---
PT RESTING COMFORTABLY. VITAL SIGNS STABLE. NO NEEDS AT THIS TIME.
[2022-08-19 15:16] VITALS: BP 123/64
--- NOTE | 2022-08-19 17:59 | NUR ---
PT RECEIVED IN ROOM 280. VSS, ALL SAFETY MEASURES IN PLACE. PATIENT HAS NO COMPLAINTS OF PAIN. SLING ON RIGHT ARM. PT IS ALERT AND ORIENTED TO SELF ONLY. STATES SHE IS HAPPY IN HER NEW ROOM.
[2022-08-19 18:37] VITALS: BP 129/68
--- NOTE | 2022-08-19 20:20 | NUR ---
PT RESTING IN BED, NO SIGNS OF DISTRESS NOTED, RESP EVEN AND UNLABORED. PT ALERT AND ORIENTED X3, DRESSING TO LLE CDI; PT HAS A R AKA. IV FLUIDS TO LH, SWANSON DRAINING TO GRAVITY. DRESSING TO BUTTOCK CDI, NOTED SCROTUM REDDENED, PT C/O ITCHING DECLINED BARRIER CREAM USE BUT AGREED TO POWDER. PT MEDICATED PER JUL, ASSESSMENT COMPLETED, CALL LIGHT IN REACH,CONTINUE TO MONITOR.
--- NOTE | 2022-08-20 00:32 | NUR ---
PT RESTING IN BED WATCHING TV, NO SIGNS OF DISTRESS NOTED, RESP EVEN AND UNLABORED. PT MEDICATED FOR PAIN, CALL LIGHT IN REACH,CONTINUE TO MONITOR.
[2022-08-20 04:15] VITALS: BP 138/70
--- NOTE | 2022-08-20 04:19 | NUR ---
PT RESTING IN BED, NO SIGNS OF DISTRESS NOTED, RESP EVEN AND UNLABORED. PT C/O PAIN 12/03 PT MEDICATED PER JUL, CALL LIGHT IN REACH,CONTINUE TO MONITOR.
[2022-08-20 05:31] LABS: BASO% 0.8 % (0-3); EOS% 0.6 % (0-8); HEMATOCRIT 33.5 % (39.0-50.0); HEMOGLOBIN 10.2 g/dl (14.0-18.0); IMMATURE GRANULOCYTES 0.5 % (0.0-5.0); LYMPH% 61.6 % (15-41); MEAN CELL VOLUME 82.7 fL CALC (80.0-100.0); MEAN CORPUSCULAR HGB 25.2 pG CALC (26.0-32.0); MEAN CORPUSCULAR HGB CONC 30.4 g/dL CAL (32.0-36.0); MONO% 11.9 % (2-13); NEUT# 1.53 thou/uL (1.82-7.42); NEUT% 24.6 % (42-76); RED BLOOD COUNT 4.05 mill/uL (4.70-6.10); RED CELL DISTRI WIDTH 19.8 % (11.5-15.5)
[2022-08-20 05:40] LABS: ANION GAP 11 (6-22 (CALC)); BUN 18 mg/dL (9-20); BUN/CREATININE RATIO 28 (12-20 (CALC)); CARBON DIOXIDE 27 mmol/l (22-30); CHLORIDE 104 mmol/l (95-108); CREATININE 0.6 mg/dL (0.7-1.3); GFR FOR AFR.AMER. > 60 ML/MIN (>=60 (CALC)); GFR OTHER RACES > 60 ML/MIN (>=60 (CALC)); MAGNESIUM 1.8 mg/dL (1.6-2.3); POTASSIUM 4.2 mmol/l (3.5-5.1); SODIUM 137 mmol/l (137-146)
--- NOTE | 2022-08-20 08:11 | NUR ---
Patient awake and alert and oriented x3. Eating breakfast. Head to toe assessment completed. Call light within reach.
--- NOTE | 2022-08-20 11:38 | NUR ---
BOOKED AN INFECTIOUS DISEASE CONSULT WITH DR CARREON [facility]IA [facility] AT 1137 HRS.
--- NOTE | 2022-08-20 13:50 | NUR ---
Patient awake and watching television in bed. Medicated for pain. Personal items and call light within reach.
[2022-08-20 16:04] VITALS: BP 143/70
[2022-08-20 19:05] VITALS: BP 133/72
--- NOTE | 2022-08-20 20:30 | NUR ---
PT IN BED. DISCUSSED PLAN OF CARE. EDUCATED ON NEED TO KEEP SELF TURNED EVERY 2 HOURS. PT STATES UNDERSTANDING. PT ABLE OT TURN SELF. ASSESSEMENT COMPLETE. NO SIGNS OF DISTRESS.
--- NOTE | 2022-08-21 04:00 | NUR ---
PT C/O BED 02/03 IN HIS LEFT FOOT. MEDICATED AND REPOSITIONED. LEG ELEVATED ON PILLOW. WILL CONTINUE TO MONITOR.
[2022-08-21 05:31] LABS: BASO% 0.7 % (0-3); EOS% 0.5 % (0-8); HEMATOCRIT 33.7 % (39.0-50.0); HEMOGLOBIN 10.2 g/dl (14.0-18.0); IMMATURE GRANULOCYTES 0.3 % (0.0-5.0); LYMPH% 61.9 % (15-41); MEAN CELL VOLUME 82.8 fL CALC (80.0-100.0); MEAN CORPUSCULAR HGB 25.1 pG CALC (26.0-32.0); MEAN CORPUSCULAR HGB CONC 30.3 g/dL CAL (32.0-36.0); MONO% 12.3 % (2-13); NEUT# 1.44 thou/uL (1.82-7.42); NEUT% 24.3 % (42-76); RED BLOOD COUNT 4.07 mill/uL (4.70-6.10); RED CELL DISTRI WIDTH 19.6 % (11.5-15.5)
[2022-08-21 05:52] LABS: ALBUMIN 3.5 g/dL (3.2-5.0); ALKALINE PHOSPHATASE 144 u/l (38-126); ANION GAP 9 (6-22 (CALC)); BUN 17 mg/dL (9-20); BUN/CREATININE RATIO 27 (12-20 (CALC)); CARBON DIOXIDE 29 mmol/l (22-30); CHLORIDE 103 mmol/l (95-108); CREATININE 0.6 mg/dL (0.7-1.3); GFR FOR AFR.AMER. > 60 ML/MIN (>=60 (CALC)); GFR OTHER RACES > 60 ML/MIN (>=60 (CALC)); POTASSIUM 3.8 mmol/l (3.5-5.1); SGOT/AST 31 u/l (17-59); SODIUM 137 mmol/l (137-146); TOTAL PROTEIN 7.8 g/dL (6.3-8.2)
[2022-08-21 06:08] VITALS: BP 120/69
--- NOTE | 2022-08-21 09:37 | NUR ---
Patient alert and talkative this morning. C/o pain to left foot surgical site. Surgical dressing clean, dry and intact. Patient encouraged to reposition often for pain relief intervention. Head to toe assessment complete. Personal items and call light within reach.
--- NOTE | 2022-08-21 12:54 | NUR ---
Mark catheter removed for voiding trial per MD order. Patient provided a urinal. mDenies painor discomfort at this time. Personal items and call light within reach.
[2022-08-21 15:49] VITALS: BP 93/47
[2022-08-21 18:40] VITALS: BP 123/59
--- NOTE | 2022-08-21 19:45 | NUR ---
RECEIVED REPORT FROM DAYSDEFT NURSE. PT NOTED LAYING BACK IN BED, ON PHONE. PT IS A/OX3, DENIES ANY PAIN AT THIS TIME. SURGICAL DRESSING ON LT FOOT NOTED, NO DRESSING CHANGE ORDERS IN AT THIS TIME. PT HAS DSG PAD TO SACRUM FOR PRESSURE ULCER THAT WAS UNOBVERSABLE. EDUCATED PT ON IMPORTANCE OF ROTATING ON SIDES TO RELIVED PRESSURE OFF TAILBONE. PT INDICATED UNDERSTANDING. PT HAD SWANSON REMOVED DURING DAYSHIFT, NURSE DID INFORM ME THAT PT HAS NOT HAD POST VOID YET. BLADDER SCAN WAS COMPLETED DURING SHIFT CHANGE BY DAYSDEFT NURSE AND DOCUMENTED. DID EDUCATED PT ON STATUS OF POST VOID AND BLADDER SCAN. EDUCATED PT ON CURRENT PLAN OF CARE. CALL LIGHT WITHIN REACH AND SAFETY PRECAUTIONS IN PLACE.
--- NOTE | 2022-08-21 20:50 | NUR ---
PT WAS ABLE TO VOID, 125CC OF YELLOW CLEAR URINE.
--- NOTE | 2022-08-22 00:15 | NUR ---
PT NOTED LAYING IN BED SUPINE, ON PHONE. PT HAS BEEN ABLE TO VOID 3 TIMES IN URINAL. PT DENIES ANY PAIN AT THIS TIME. PT REQUESTED SNACK. EDUCATED PT ON DIET AND BLOOD SUGAR, OFFERED SUGAR FREE SNACKS. CALL LIGHT WITHIN REACH AND SAFETY PRECATUIONS IN PLACE.
[2022-08-22 03:59] VITALS: BP 116/61
--- NOTE | 2022-08-22 04:30 | NUR ---
PT NOTED LAYING BACK IN BED SUPINE ON PHONE. PT COMPLAINED OF PAIN 8 OUT OF 10. FOLLOW UP WITH PAIN MEDICATION PER EMAR. RE EDUCATED PT ON IMPORTANCE OF ROTATING ONTO SIDES TO KEEP PRESSURE OFF SACRUM AREA AND HELP RELIEVE PAIN. CALL LIGHT WITHIN REACH AND SAFETY PRECAUTIONS IN PLACE.
[2022-08-22 05:54] LABS: BASO% 0.5 % (0-3); EOS% 0.5 % (0-8); HEMOGLOBIN 9.7 g/dl (14.0-18.0); IMMATURE GRANULOCYTES 0.3 % (0.0-5.0); LYMPH% 60.5 % (15-41); MEAN CORPUSCULAR HGB 25.5 pG CALC (26.0-32.0); MEAN CORPUSCULAR HGB CONC 30.3 g/dL CAL (32.0-36.0); MONO% 11.2 % (2-13); NEUT# 1.75 thou/uL (1.82-7.42); RED BLOOD COUNT 3.81 mill/uL (4.70-6.10); RED CELL DISTRI WIDTH 20.1 % (11.5-15.5)
[2022-08-22 06:05] LABS: ALBUMIN 3.4 g/dL (3.2-5.0); ALKALINE PHOSPHATASE 123 u/l (38-126); ANION GAP 10 (6-22 (CALC)); BILIRUBIN, TOTAL 0.1 mg/dL (0.2-1.3); BUN 18 mg/dL (9-20); BUN/CREATININE RATIO 29 (12-20 (CALC)); CARBON DIOXIDE 27 mmol/l (22-30); CHLORIDE 105 mmol/l (95-108); CREATININE 0.6 mg/dL (0.7-1.3); GFR FOR AFR.AMER. > 60 ML/MIN (>=60 (CALC)); GFR OTHER RACES > 60 ML/MIN (>=60 (CALC)); MAGNESIUM 1.8 mg/dL (1.6-2.3); POTASSIUM 3.7 mmol/l (3.5-5.1); SGOT/AST 29 u/l (17-59); SODIUM 138 mmol/l (137-146); TOTAL PROTEIN 7.4 g/dL (6.3-8.2)
[2022-08-22 06:42] VITALS: BP 125/73
--- NOTE | 2022-08-22 08:00 | NUR ---
PT LYING IN BED, RESTING. NO COMPLAINTS/DISTRESS AT THIS TIME. WILL CONTINUE TO MONITOR.
--- NOTE | 2022-08-22 11:55 | NUR ---
Pt resting in bed, c/o soreness all over and refused treatment this am.
--- NOTE | 2022-08-22 12:00 | NUR ---
PT LYING IN BED. NO COMPLAUINTS AT THIS TIME. WILL CONTINUE TO MONIOR.
[2022-08-22 15:29] VITALS: BP 135/58
--- NOTE | 2022-08-22 16:00 | NUR ---
PT LYING IN BED. NO COMPLAUINTS AT THIS TIME. WILL CONTINUE TO MONIOR.
--- NOTE | 2022-08-22 19:30 | NUR ---
RECEIVED REPORT FROM DAYSNYFT NURSE. PT NOTED LAYING SUPINE IN BED ON PHONE, A/OX3. ASSESSED PT BACKSIDE, WET TO DRY DRESSING PLACE ON SACRUM WOUND FROM DAYSHIFT NURSE. IRRITATION AROUND SACRUM FROM PREVIOUS DRESSING APPLIED. INSTRUCTED PT ON IMPORTANCE OF KEEPING PRESSURE OFF SACRUM AND ROTATING EVERY 2 HRS. PT EDUCATED ON PLAN OF CARE FOR TONIGHT. CALL LIGHT WITHN REACH AND SAFETY PRECAUTIONS IN PLACE.
[2022-08-22 20:02] VITALS: BP 145/74
--- NOTE | 2022-08-23 | NUR ---
PT RESTING IN BED AT THIS TIME. NO S/S OF DISTRESS. CALL LIGHT WITHIN REACH AND SAFETY PRECAUTIONS IN PLACE.
[2022-08-23 03:41] VITALS: BP 114/62
--- NOTE | 2022-08-23 04:10 | NUR ---
TOOK PT VITALS, VITALS STABLE. PT NOTED RESTING COMFORTABLY SUPINE IN BED. NO COMPLAINTS OF PAIN/DISTRESS AT THIS TIME. CALL LIGHT WITHIN REACH AND SAFETY PRECAUTIONS IN PLACE.
[2022-08-23 06:15] VITALS: BP 143/72
[2022-08-23 06:33] LABS: BASO% 0.5 % (0-3); EOS% 0.6 % (0-8); HEMATOCRIT 34.8 % (39.0-50.0); HEMOGLOBIN 10.5 g/dl (14.0-18.0); IMMATURE GRANULOCYTES 0.2 % (0.0-5.0); MEAN CELL VOLUME 84.3 fL CALC (80.0-100.0); MEAN CORPUSCULAR HGB 25.4 pG CALC (26.0-32.0); MEAN CORPUSCULAR HGB CONC 30.2 g/dL CAL (32.0-36.0); MONO% 10.6 % (2-13); NEUT# 1.64 thou/uL (1.82-7.42); NEUT% 25.1 % (42-76); RED BLOOD COUNT 4.13 mill/uL (4.70-6.10); RED CELL DISTRI WIDTH 20.1 % (11.5-15.5)
[2022-08-23 06:41] LABS: ALBUMIN 3.5 g/dL (3.2-5.0); ALKALINE PHOSPHATASE 120 u/l (38-126); ANION GAP 12 (6-22 (CALC)); BUN 18 mg/dL (9-20); BUN/CREATININE RATIO 30 (12-20 (CALC)); CARBON DIOXIDE 27 mmol/l (22-30); CHLORIDE 106 mmol/l (95-108); CREATININE 0.6 mg/dL (0.7-1.3); GFR FOR AFR.AMER. > 60 ML/MIN (>=60 (CALC)); GFR OTHER RACES > 60 ML/MIN (>=60 (CALC)); POTASSIUM 3.9 mmol/l (3.5-5.1); SGOT/AST 32 u/l (17-59); SODIUM 140 mmol/l (137-146); TOTAL PROTEIN 7.7 g/dL (6.3-8.2)
--- NOTE | 2022-08-23 07:00 | NUR ---
PT LYING IN BED, ASLEEP. NO COMPLAINTS/DISTRESS AT THIS TIME. WILL CONTINUE TO MONITOR.
--- NOTE | 2022-08-23 10:47 | NUR ---
Pt resting in bed watching TV. He reported not feeling well and refuse therapy today.
--- NOTE | 2022-08-23 12:00 | NUR ---
PT LYING IN BED,NO COMPLAINTS\ OR DISTRESS AT THIS TIME. WILL CONTINUE TO MONITOR. ENCOURAGE TO GET UP TO CHAIR, PT SHEILAUSES, AWARE.
[2022-08-23 15:58] VITALS: BP 120/64
--- NOTE | 2022-08-23 16:00 | NUR ---
PT LYING IN BED WATCHING TV. NO COMPLAINTS/DISTRESS AT THIS TIME.
[2022-08-23 19:26] VITALS: BP 141/58
--- NOTE | 2022-08-23 19:56 | NUR ---
RECEIVED REPORT FROM DAYSHIFT NURSE. PT NOTED LAYING FOWLERS IN BED ON PHONE. EDUCATED PT ON CONTINUED PLAN OF CARE FOR TONIGHT AND PAIN MANAGEMENT. CALL LIGHT WITHIN REACH AND SAFETY PRECAUTIONS IN PLACE.
--- NOTE | 2022-08-24 | NUR ---
PT COMPLAINED OF PAIN IN LT TOE AND BUTTOCKS. RECEIVED PAIN MEDICATION PER EMAR. PROVIDED PT WITH SNACKS AND EDUCATED ON LEVEMIR AND HYPOGLYCEMIA. PT LAYING IN BED OF LT SIDE. CALL LIGHT WITHIN REACH AND SAFETY PRECAUTIONS IN PLACE.
--- NOTE | 2022-08-24 04:30 | NUR ---
PT NOTED LAYING IN BED COMFORTABLY. PT HAS NOT BEEN COMPLIANT WITH TURNING Q2H TO KEEP PRESSURE OFF SACRUM. LAB IN ROOM WITH PT AT THIS TIME. PT DENIES ANY PAIN. CALL LIGHT WITHIN REACH AND SAFETY PRECAUTIONS IN PLACE.
[2022-08-24 05:02] VITALS: BP 127/68
[2022-08-24 06:10] LABS: BASO% 0.7 % (0-3); EOS% 0.7 % (0-8); HEMATOCRIT 34.6 % (39.0-50.0); HEMOGLOBIN 10.4 g/dl (14.0-18.0); IMMATURE GRANULOCYTES 0.5 % (0.0-5.0); LYMPH% 61.9 % (15-41); MEAN CELL VOLUME 84.4 fL CALC (80.0-100.0); MEAN CORPUSCULAR HGB 25.4 pG CALC (26.0-32.0); MEAN CORPUSCULAR HGB CONC 30.1 g/dL CAL (32.0-36.0); MONO% 11.8 % (2-13); NEUT# 1.34 thou/uL (1.82-7.42); NEUT% 24.4 % (42-76); RED BLOOD COUNT 4.1 mill/uL (4.70-6.10); RED CELL DISTRI WIDTH 20.3 % (11.5-15.5)
[2022-08-24 06:23] LABS: ALBUMIN 3.4 g/dL (3.2-5.0); ALKALINE PHOSPHATASE 129 u/l (38-126); ANION GAP 11 (6-22 (CALC)); BUN 17 mg/dL (9-20); BUN/CREATININE RATIO 27 (12-20 (CALC)); CARBON DIOXIDE 28 mmol/l (22-30); CHLORIDE 104 mmol/l (95-108); CREATININE 0.6 mg/dL (0.7-1.3); GFR FOR AFR.AMER. > 60 ML/MIN (>=60 (CALC)); GFR OTHER RACES > 60 ML/MIN (>=60 (CALC)); POTASSIUM 3.8 mmol/l (3.5-5.1); SGOT/AST 31 u/l (17-59); SODIUM 139 mmol/l (137-146); TOTAL PROTEIN 7.4 g/dL (6.3-8.2)
[2022-08-24 06:35] LABS: BILIRUBIN, TOTAL 0.1 mg/dL (0.2-1.3)
[2022-08-24 07:50] VITALS: BP 118/68
--- NOTE | 2022-08-24 08:00 | NUR ---
ASSESSMENT DONE PATIENT STATED FEELING BETTER. PATIENT'S SACRUM DRESSING CHANGED AND NYSTATIN APPLIED. NURSE INFORMED PATIENT THAT SHE WOULD READ THROUGH THE NOTES TO SEE HOW SHE SHOULD CHANGE HIS FOOT DRESSING. WILL CONTINUE TO MONITOR.
--- NOTE | 2022-08-24 15:00 | NUR ---
DRESSING ON LEFT FOOT WAS REMOVED AND CLEANED. PICTURE WAS TAKEN AND PLACED IN BINDER. WOUND APPEARED HEALING PROPERLY NOT REDNESS OR DRAINAGED ON OR NEAR STITCHES. INFORMED PATIENT OF LEAVING WOUND OPEN TO AIR. WILL CONTINUE TO MONITOR.
[2022-08-24 15:26] VITALS: BP 145/74
--- NOTE | 2022-08-24 15:43 | NUR ---
BLADDER SCAN PATIENT PER ACID LEVELER AFTER VOIDING 250CC TOTAL AMOUNT SHOW ON SCANNER 686CC NOTIFIED ACID LEVELER. ACID LEVELER HAD STATED THAT IF GREATER THAN [address] SWANSON AND THAT PATIENT WOULD BE DISCHARGE WITH IT. INFORMED ACID LEVELER THAT NURSE WILL BE PLACING SWANSON TO GET VERIFICATION TO PLACE. ACID LEVELER RESPONDED AGREEING WITH SWANSON PLACEMENT. PATIENT WAS INFORMED OF PROCEDURE.
--- NOTE | 2022-08-24 17:15 | NUR ---
SWANSON PLACED WITHOUT ANY ISSUES WITH A SECOND NURSE PRESENT (JOSE). INFORMED PATIENT THAT HE WILL BE DISCHARGE WITH IT. PATIENT STATED UNDERSTANDING.
[2022-08-24 19:00] VITALS: BP 139/79
[2022-08-24 19:18] VITALS: BP 139/79
--- NOTE | 2022-08-24 19:22 | NUR ---
[facility]. PT NOTED LAYING SUPINE IN BED. DRESING ON LT FOOT TAKEN OFF. SURGICAL INCISION APPEARS HEALTHY, DRY AND INTACT. FLEY NOTED. PT DOES COMPLAIN OF PAIN IN FOOT AT THIS TIME. EDUCATED PT ON CONTINUED PLAN OF CARE AND WILL FOLLOW UP WITH PAIN MEDICATION PER EMAR. CALL LIGHT WITHIN REACH AND SAFETY PRECAUTIONS IN PLACE.
--- NOTE | 2022-08-25 00:29 | NUR ---
PT LAYING IN BED ON RT SIDE. PT COMPLAINED OF PAIN 6 OUT OF 10 IN LT FOOT. ADMINISTERED PAIN MEDICATION PER EMAR. CALL LIGHT WITHIN REACH AND SAFETY PRECAUTIONS IN PLACE.
[2022-08-25 04:00] VITALS: BP 116/64
--- NOTE | 2022-08-25 04:00 | NUR ---
PT LAYING IN BED SLEEPING, NO S/S OF DISTRESS. CALL LIGHT WITHIN REACH AND SAFETY PRECAUTIONS IN PLACE.
[2022-08-25 04:52] VITALS: BP 116/64
[2022-08-25 05:35] LABS: BASO% 0.5 % (0-3); EOS% 0.5 % (0-8); HEMATOCRIT 33.3 % (39.0-50.0); HEMOGLOBIN 10.2 g/dl (14.0-18.0); IMMATURE GRANULOCYTES 0.5 % (0.0-5.0); LYMPH% 63.1 % (15-41); MEAN CELL VOLUME 84.1 fL CALC (80.0-100.0); MEAN CORPUSCULAR HGB 25.8 pG CALC (26.0-32.0); MEAN CORPUSCULAR HGB CONC 30.6 g/dL CAL (32.0-36.0); MONO% 11.6 % (2-13); NEUT# 1.4 thou/uL (1.82-7.42); NEUT% 23.8 % (42-76); RED BLOOD COUNT 3.96 mill/uL (4.70-6.10); RED CELL DISTRI WIDTH 20.4 % (11.5-15.5)
[2022-08-25 05:51] LABS: ALBUMIN 3.3 g/dL (3.2-5.0); ALKALINE PHOSPHATASE 130 u/l (38-126); ANION GAP 12 (6-22 (CALC)); BUN 18 mg/dL (9-20); BUN/CREATININE RATIO 31 (12-20 (CALC)); CARBON DIOXIDE 24 mmol/l (22-30); CHLORIDE 108 mmol/l (95-108); CREATININE 0.6 mg/dL (0.7-1.3); GFR FOR AFR.AMER. > 60 ML/MIN (>=60 (CALC)); GFR OTHER RACES > 60 ML/MIN (>=60 (CALC)); SGOT/AST 29 u/l (17-59); SODIUM 139 mmol/l (137-146); TOTAL PROTEIN 7.1 g/dL (6.3-8.2)
[2022-08-25 06:24] VITALS: BP 135/68
--- NOTE | 2022-08-25 08:00 | NUR ---
PATIENT RESTING PROVIDED NYSTATIN AND SACRUM DRESSING CHANGED. LEFT FOOT WOUND STILL OPEN TO AIR NO CHANGE. PATIENT REPORTS NO PAIN.
--- NOTE | 2022-08-25 12:00 | NUR ---
PATIENT REPORTS PAIN 7/10 ON LEFT FOOT. PAIN MED PROVIDED. WILL CONTINUE TO MONITOR.
--- NOTE | 2022-08-25 16:00 | NUR ---
PATIENT RESTING ASKED FOR PAIN MED FOR LEFT FOOT.
--- NOTE | 2022-08-25 18:08 | NUR ---
PATIENT REPORTED FEELING HOT INDUSTRIAL TRUCK OPERATOR PROVIDED FAN AND NURSE CHECKED TEMP (97.7) WNL. BLOOD GLUCOSE 214 INSULIN GIVEN. WILL CONTINUE TO MONITOR.
[2022-08-25 19:24] VITALS: BP 138/66
--- NOTE | 2022-08-25 20:00 | NUR ---
RECEIVED REPORT FROM NURSE RANJIT PATIENT HAS IV ON LEFT WRIST PATENT FLUSHES WELL, LUNG SOUNDS CLEAR, ACTIVE BOWEL SOUNDS, PATIENT RT AKA, STUMP CDI, LEFT FOOT TOE AMPUTATION NO DRAINAGE NOTED, PATIENT HAS INDWELLINF SWANSON CATH DRAINING YELLOW CLEAR URINE, REDNESS NOTED ON SCROTAL AREA, ON NYSTATIN CALL LIGHT IN REACH.
--- NOTE | 2022-08-25 21:44 | NUR ---
NEW IV INSERTED ON LEONELA G22, PATENT FLUSHES WELL.
--- NOTE | 2022-08-26 | NUR ---
DUE PO KEFLEX GIVEN AT THIS TIME, NO DSICOMFORTS NOTED CALL LIGHT IN REACH.
[2022-08-26 03:28] VITALS: BP 134/65
--- NOTE | 2022-08-26 03:35 | NUR ---
RANJITH C/O OF LEFT FOOT PAIN PRN LORTAB GIVEN, NEW DRESSING APPLIED TO COCCYX AREA, LINEN CHANGED, CALL LIGHT IN REACH,
[2022-08-26 06:56] VITALS: BP 126/67
--- NOTE | 2022-08-26 08:00 | NUR ---
NO CHANGES PATIENT RESTING WATCHING TV. PATIENT REPORTS NO PAIN AT THIS TIME. DRESSING CHANGED AND NYSTATIN APPLIED. WILL CONTINUE TO MONITOR.
--- NOTE | 2022-08-26 12:00 | NUR ---
PATIENT RESTING RPORTED PAIN NURSE PROVIDED PAIN MED. ENCOURAGE TO CHANGE POSITION FREQUENTLY. WILL CONTINUE TO MONITOR.
[2022-08-26 16:33] VITALS: BP 139/80
--- NOTE | 2022-08-26 16:35 | NUR ---
PATIENT REPORTS PAIN ON LEFT FOOT NURSE WILL PROVIDE PAIN MED. PATIENT IS RESTING. SWANSON CHECK FOR PROPER PLACEMENT. WILL CONTINUE TO MONITOR.
--- NOTE | 2022-08-26 20:00 | NUR ---
PT RESTING IN BED WATCHING TV, NO SIGNS OF DISTRESS NOTED, RESP EVEN AND UNLABORED. PT ALERT AND ORIENTED X3, DISCUSSED POC, DRESSING TO BUTTOCK CDI, SWANSON DRAINING TO GRAVITY, NOTED AREA TO L FOOT 2ND DIGIT REMOVED FROM SURGERY, ORNAMENTAL IRONWORKER HELPER, SUTURES INTACT. NO S/SX OF INFECTION NOTED. PEDAL PULSE PALPABLE. IV TO LEONELA FLUSHED WELL. ASSESSMENT COMPLETED, CALL LIGHT IN REACH, CONTINUE TO MONITOR.
[2022-08-26 20:10] VITALS: BP 155/75
--- NOTE | 2022-08-26 22:28 | NUR ---
PT REQUESTED IV SITE TO BE MOVED DUE TO ITCHING. IV SITE REMOVED, CATHETER INTACT. DRESSING APPLIED, CALL LIGHT IN REACH,CONTINUE TO MONITOR, WILL RETURN TO START A NEW LINE.
--- NOTE | 2022-08-26 23:40 | NUR ---
PT RESTING IN BED, MEDICATED PER MAR, NEW IV SITE OBTAINED, PT TOLERATED WELL. PT PLACED ON BED [place] FOR POSSIBLE BM. CALL LIGHT IN REACH,CONTINUE TO MONITOR.
--- NOTE | 2022-08-27 04:00 | NUR ---
PT REQUESTING BED [place], PT HAD A LARGE BM, PERICARE COMPLETED, DENIES ANY NEEDS OR COMPLAINTS, CALL LIGHT IN REACH,CONTINUE TO MONITOR.
[2022-08-27 04:34] VITALS: BP 109/57
--- NOTE | 2022-08-27 08:00 | NUR ---
PATIENT RESTING REPORTS SOME PAIN ON HIS RIGHT SHOULDER PUT IS COMFORTABLE AT THIS TIME. FAMILY AT BEDSIDE. ENCOURAGE INTAKE. IV FLUIDS RUNNING. WILL CONTINUE TO MONITOR.
[2022-08-27 11:06] VITALS: BP 114/53
[2022-08-27] MEDS ORDERED: TAMSULOSIN HCL0.4 MG PO (13:53)
[2022-08-27] MEDS ORDERED: CEPHALEXIN500 MG PO (13:53)
--- NOTE | 2022-08-27 15:30 | NUR ---
[employer] ARCHITECT REMOVED SUTURE FROM LEFT FOOT AND CLEANED AREA. PATIENT INFORMED OF TRANSPORTATION ARRANGMENT.
[2022-08-27 15:47] VITALS: BP 136/73
--- NOTE | 2022-08-27 16:30 | NUR ---
Discharge instructions given. Patient verbalizes understanding of same. Discharged in stable condition via Medical Transport to [facility]. All belongings sent with pt. Personal wheelchair was not able to be taken case consultant aware. Informed patient that he need to go and that tomorrow case consultant would make some call to try and get it over to the rehab location.
== END 2022-08-27 16:36 | DRG 854 ==
LOC: ED 08:31 → ED-I 11:00 → ED 11:25 → MS2 11:26
PROVIDERS: Family Medicine; Nurse Practitioner Family; ADMIT Internal Medicine; ATTEND Internal Medicine
PROC: 0T9B70Z Drainage of Bladder with Drainage Device, Via Natural or Artificial Opening (ICD-10-PCS; principal; 2022-08-06)
PROC: 0H9FXZZ Drainage of Right Hand Skin, External Approach (ICD-10-PCS; 2022-08-09)
PROC: 0Y6S0Z0 Detachment at Left 2nd Toe, Complete, Open Approach (ICD-10-PCS; 2022-08-10)
PROC: 0QBP0ZZ Excision of Left Metatarsal, Open Approach (ICD-10-PCS; 2022-08-10)
PROC: 0T9B70Z Drainage of Bladder with Drainage Device, Via Natural or Artificial Opening (ICD-10-PCS; 2022-08-24)
DX: A41.9 Sepsis, unspecified organism (principal); L97.528 Non-pressure chronic ulcer of other part of left foot with other specified severity; M86.172 Other acute osteomyelitis, left ankle and foot; N39.0 Urinary tract infection, site not specified; E11.69 Type 2 diabetes mellitus with other specified complication; E11.621 Type 2 diabetes mellitus with foot ulcer; L03.032 Cellulitis of left toe; E11.628 Type 2 diabetes mellitus with other skin complications; E11.65 Type 2 diabetes mellitus with hyperglycemia; E11.42 Type 2 diabetes mellitus with diabetic polyneuropathy; E11.51 Type 2 diabetes mellitus with diabetic peripheral angiopathy without gangrene; I10 Essential (primary) hypertension; S60.521A Blister (nonthermal) of right hand, initial encounter; L08.9 Local infection of the skin and subcutaneous tissue, unspecified; L89.152 Pressure ulcer of sacral region, stage 2; B18.2 Chronic viral hepatitis C; E78.5 Hyperlipidemia, unspecified; N40.1 Benign prostatic hyperplasia with lower urinary tract symptoms; R33.8 Other retention of urine; N39.490 Overflow incontinence; J45.909 Unspecified asthma, uncomplicated; F17.210 Nicotine dependence, cigarettes, uncomplicated; B96.1 Klebsiella pneumoniae [K. pneumoniae] as the cause of diseases classified elsewhere; B95.1 Streptococcus, group B, as the cause of diseases classified elsewhere; X58.XXXA Exposure to other specified factors, initial encounter; Z79.4 Long term (current) use of insulin; Z79.84 Long term (current) use of oral hypoglycemic drugs; Z89.611 Acquired absence of right leg above knee; Z89.422 Acquired absence of other left toe(s); Z20.822 Contact with and (suspected) exposure to COVID-19
CPT/HCPCS: J0131; J0692; J1650; S0164